=== PATIENT | female | born 1960 | race Caucasian/White ===

== ENCOUNTER 2017-07-25 09:40 | Inpatient (IN) | payer MEDICARE ==
[~2017-07-25] VITALS: Ht 149.9 cm; Wt 100.7 kg
[~2017-07-25 09:40] MED LIST: ASPIRIN325 PO; CARDIZEM CD240 MG PO; CLONAZEPAM 1 MG1 M1 PO; COREG25 MG PO; ELOCON TRANSDERM; FLAX SEED OIL1000 MG PO; FLEXERIL PO; FOLIC ACID1 MG PO; HUMALIN SUBQ; HUMALOG SUBQ; HYDRALAZINE 2525 MG PO; HYDROCODONE-AP1 EA11 PO; IMDUR 60 MG TAB60 M1 PO; LANTUS100 UNIT/M SUBQ; LASIX 40 MG TAB40 M2 PO; MONOPRIL20 MG PO; NITROGLYCERIN0.4 MG SUBLING; PENICILLIN V P500 MG PO; PREDNISONE 10 M10 MG PO; VIT D3 PO; WELCHOL 625 MG625 M1 PO; fish oil PO; nitroglycerin TRANSLING
[2017-07-25 10:05] VITALS: BP 198/96
[2017-07-25 10:10] LABS: HEMATOCRIT 44.5 % (37.0-47.0); HEMOGLOBIN 14.5 gm/dL (12.0-15.0); MCH 31.7 pg (26.0-34.0); MCHC 32.6 g/dL (28.0-37.0); MCV 97.2 fL (80.0-100.0); MPV 8.9 fl. (7.2-11.1); NUCLEATED RBCS 0 /100WBC; PLATELET COUNT* 232 thou/uL (150-400); RBC 4.58 mil/uL (4.20-5.00); RDW-CV 14.6 % (10.5-14.5); WBC 10.5 thou/uL (4.0-11.0)
[2017-07-25 10:19] LABS: ANION GAP 12 mmol/L (7-16); BUN 30 mg/dL (7-18); CALCIUM 8.8 mg/dL (8.5-10.1); CHLORIDE 100 mmol/L (98-107); CO2 23 mmol/L (21-32); CREATININE 1.6 mg/dL (0.6-1.3); GLUCOSE 321 mg/dL (70-99); POTASSIUM 3.8 mmol/L (3.5-5.1); SODIUM 135 mmol/L (136-145)
[2017-07-25 10:20] LABS: APTT 23.8 Seconds (25.0-31.3); INR 1.1; PROTIME 10.3 Seconds (9.20-11.50)
[2017-07-25 10:30] LABS: ALBUMIN 3.4 g/dL (3.4-5.0); ALKALINE PHOSPHATASE 126 U/L (46-116); LIPASE 78 U/L (73-393); MAGNESIUM 1.5 mg/dL (1.8-2.4); NT-PRO BRAIN NAT PEPTIDE 2370 pg/mL (<300); SGOT 20 U/L (15-37); SGPT 26 U/L (30-65); TOTAL BILIRUBIN 0.3 mg/dL (<0.1-1.0); TOTAL PROTEIN 7.5 g/dL (6.4-8.2); TROPONIN-I LEVEL <0.06 ng/mL (<0.06)
[2017-07-25 10:36] LABS: ABSOLUTE LYMPHOCYTES 1.3 thou/uL (0.8-5.3); ABSOLUTE MONOCYTES 1.2 thou/uL (0.0-1.2); ABSOLUTE NEUTROPHILS 8.1 thou/uL (1.6-8.1); PLATELET ESTIMATE ADEQUATE
[2017-07-25 10:45] LABS: INFLUENZA A ANTIGEN None Detected (None Detect); INFLUENZA B ANTIGEN None Detected (None Detect)
[2017-07-25 12:44] LABS: BE -8.1 mmol/L (-2 to +3); HCO3 16.6 mmol/L (22.0-26.0); PCO2 31.9 mmHg (35.0-45.0); PO2 66.5 mmHg (75.0-100.0); pH 7.333 (7.340-7.450)
[2017-07-25 16:10] VITALS: BP 131/62
[2017-07-25 16:45] VITALS: BP 128/74
[2017-07-25 20:13] VITALS: BP 145/69
[2017-07-26 04:08] LABS: ABSOLUTE LYMPHOCYTES 0.9 thou/uL (0.8-5.3); ABSOLUTE MONOCYTES 0.4 thou/uL (0.0-1.2); ABSOLUTE NEUTROPHILS 6.9 thou/uL (1.6-8.1); BASOPHILS 0.6 %; HEMATOCRIT 41.3 % (37.0-47.0); HEMOGLOBIN 13.7 gm/dL (12.0-15.0); LYMPHOCYTES 10.5 %; MCHC 33.1 g/dL (28.0-37.0); MCV 96.8 fL (80.0-100.0); MONOCYTES 4.7 %; MPV 9.3 fl. (7.2-11.1); NUCLEATED RBCS 0 /100WBC; PLATELET COUNT* 214 thou/uL (150-400); POLYS 84.2 %; RBC 4.27 mil/uL (4.20-5.00); RDW-CV 14.1 % (10.5-14.5); WBC 8.2 thou/uL (4.0-11.0)
[2017-07-26 04:21] LABS: CALCIUM 8.9 mg/dL (8.5-10.1); CREATININE 1.7 mg/dL (0.6-1.3); MAGNESIUM 1.9 mg/dL (1.8-2.4); POTASSIUM 3.6 mmol/L (3.5-5.1)
[2017-07-26 06:00] VITALS: BP 131/75
[2017-07-26 08:00] VITALS: BP 139/79
[2017-07-26 09:09] LABS: GLYCOHEMOGLOBIN (HGB A1C) 11.2 % (4.8-5.6)
--- NOTE | 2017-07-26 15:36 | EKG ---
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 ALMONTE : 1960 Requested By: Tiago Pugh Order Number: [id number] MD: Marcus Durant Measurements Intervals [place] Rate: 117 P: 59 [place]: 163 QRS: 18 QRSD: 112 T: 8 QT: 334 QTc: 466 Interpretive Statements Sinus tachycardia Left atrial enlargement Inferior infarct, old Delayed R-wave progression Compared to ECG 10/10/2015 08:37:45 Sinus rhythm no longer present Intraventricular conduction delay no longer present Myocardial infarct finding still present Electronically Signed On 07-26-2017 15:36:31 NETWORK SUPPORT by Marcus Durant [email or web address] <ELECTRONICALLY SIGNED> By: Marcus Durant MD, FACC 07/26/17 1536 1005 1005 Marcus Durant MD, FAC /EPI
[2017-07-26 16:00] VITALS: BP 140/79
[2017-07-26 20:00] VITALS: BP 123/55
[2017-07-27 00:08] VITALS: BP 119/63
[2017-07-27 05:25] LABS: ABSOLUTE LYMPHOCYTES 0.9 thou/uL (0.8-5.3); ABSOLUTE MONOCYTES 0.6 thou/uL (0.0-1.2); ABSOLUTE NEUTROPHILS 16.9 thou/uL (1.6-8.1); BASOPHILS 0.1 %; HEMATOCRIT 42.5 % (37.0-47.0); HEMOGLOBIN 13.7 gm/dL (12.0-15.0); LYMPHOCYTES 4.9 %; MCH 31.4 pg (26.0-34.0); MCHC 32.2 g/dL (28.0-37.0); MCV 97.5 fL (80.0-100.0); MONOCYTES 3.2 %; MPV 9.1 fl. (7.2-11.1); NUCLEATED RBCS 0 /100WBC; PLATELET COUNT* 233 thou/uL (150-400); POLYS 91.8 %; RBC 4.36 mil/uL (4.20-5.00); RDW-CV 14.8 % (10.5-14.5); WBC 18.4 thou/uL (4.0-11.0)
[2017-07-27 05:44] LABS: ALBUMIN 2.9 g/dL (3.4-5.0); CALCIUM 8.7 mg/dL (8.5-10.1); CREATININE 1.6 mg/dL (0.6-1.3); MAGNESIUM 2.1 mg/dL (1.8-2.4); POTASSIUM 3.7 mmol/L (3.5-5.1); TOTAL BILIRUBIN 0.1 mg/dL (<0.1-1.0); TOTAL PROTEIN 6.7 g/dL (6.4-8.2)
[2017-07-27 08:00] VITALS: BP 146/80
[2017-07-27 16:50] VITALS: BP 144/77
[2017-07-27 20:00] VITALS: BP 146/74
[2017-07-27 23:40] VITALS: BP 152/73
[2017-07-28 08:00] VITALS: BP 147/73
[2017-07-28] MEDS ORDERED: LEVAQUIN 750 M750 MG PO (11:13)
[2017-07-28] MEDS ORDERED: PREDNISONE 10 M10 MG PO (11:14)
[2017-07-28] MEDS ORDERED: COMBIVENT INH (14:28)
[2017-07-28 14:30] VITALS: BP 152/60
[2017-07-28 14:32] VITALS: BP 152/60
[2017-07-28 18:17] VITALS: BP 152/60
== END 2017-07-28 15:00 | disposition home or self-care (01) | DRG 177 ==
LOC: M.ERS 09:40 → M.TBA-ER 10:33 → M.ORTHSURG 10:33 → M.2W 16:23 → M.ORTHSURG 20:00
PROVIDERS: Family Medicine; ADMIT Internal Medicine
DX: J15.6 Pneumonia due to other Gram-negative bacteria (principal); J96.21 Acute and chronic respiratory failure with hypoxia; J44.1 Chronic obstructive pulmonary disease with (acute) exacerbation; J44.0 Chronic obstructive pulmonary disease with (acute) lower respiratory infection; N17.9 Acute kidney failure, unspecified; R65.10 Systemic inflammatory response syndrome (SIRS) of non-infectious origin without acute organ dysfunction; Z68.41 Body mass index [BMI] 40.0-44.9, adult; K21.9 Gastro-esophageal reflux disease without esophagitis; M19.90 Unspecified osteoarthritis, unspecified site; F32.9 Major depressive disorder, single episode, unspecified; I10 Essential (primary) hypertension; E78.5 Hyperlipidemia, unspecified; F17.210 Nicotine dependence, cigarettes, uncomplicated; E66.01 Morbid (severe) obesity due to excess calories; E11.65 Type 2 diabetes mellitus with hyperglycemia; I25.2 Old myocardial infarction; Z88.8 Allergy status to other drugs, medicaments and biological substances; Z91.013 Allergy to seafood; Z79.899 Other long term (current) drug therapy

== ENCOUNTER → 2017-08-18 | Outpatient (CLI) | payer MEDICARE ==
[~2017-08-18] MED LIST changes: +AUGMENTIN 875-1 EACH PO; +COMBIVENT INH; +DIFLUCAN100 MG PO; +GUAIFENESIN1200 MG PO; +HUMALOG100 UNIT/1 SUBQ; +LEVAQUIN 750 M750 MG PO; +NEBULIZER MISCELL; +TRULICITY0.75 MG/0. SUBQ; +TYLENOL325 MG PO
--- NOTE | 2017-08-31 08:34 | PAINCON ---
[address] [address] PAIN MANAGEMENT CONSULTATION Name: PARISH JARVISS Sandra Room: [facility] LAZARUS Ramos#: [id number] Admission: 08/18/17 Attend Phys: Moses Rice MD Discharge: Date of : 58 Report #: [id number] THIS REPORT FOR: //name// CC: Doreen Rice DATE OF SERVICE: 08/18/2017 FOLLOWUP COMPLAINT: "I was in the hospital around [place]. FOLLOWUP HISTORY: The patient is a 57-year-old female who has been seen in the pain clinic because of chronic pain. She suffers from lumbar radicular pain. Epidural steroid injections have been quite helpful in the past. She has pain in the anterior portion of her thigh, which causes pain, discomfort, numbness and weakness. Last time she came to the pain clinic, she was suffering an upper respiratory infection. We discussed the need to postpone an injection because of her illness. She states that she was seen in the hospital and admitted. The patient has a history of pulmonary problems. States that she has had a flu shot. She was told that she had had some pneumonia like symptom. She feels that things have improved at this juncture. She feels like she is getting back to normal. She has been in the process of decreasing her use of tobacco. She finds it is more problematic given that other family members continue to smoke. She is down to just a few cigarettes per day. She desires stopping the medications. She is somewhat concerned having seen that a number of people have been dying as a result of the flu this year. She finds that the hydrocodone taken p.r.n. are helpful. ALLERGIES: CRESTOR. CURRENT MEDICATIONS: Aspirin 325 mg daily, Coreg 25 mg b.i.d., clonazepam 1 mg t.i.d., Flexeril 10 mg t.i.d. p.r.n. muscle spasms, Lasix 40 mg 3 times a week, hydralazine 25 mg t.i.d., hydrocodone 7.5 mg 1 p.o. q.8 hours p.r.n. pain, Combivent 14.7 gram inhaler 2 puffs t.i.d.; nitroglycerin 0.4 mg sublingual, the patient has not taken this medication. PHYSICAL EXAMINATION: VITAL SIGNS: Blood pressure 156/88, heart rate 110, respiratory rate 18, room air saturation 93%. Height 4 feet 10 inches, weight 223 pounds, BMI is 46.6, temperature is 98.0. GENERAL: Well-developed, obese white female. ORIENTATION: Alert and oriented, affect appropriate. HEENT: Nontraumatic. Ear, eyes not problematic. Nose some congestion, [place] [address] PAIN MANAGEMENT CONSULTATION Name: WILLAIN JARVIS Room: [facility]#: [id number] Admission: 08/18/17 Attend Phys: Moses Rice MD Discharge: Date of : 58 Report #: [id number] NECK: No masses. The patient does cough, some soreness in the upper shoulder areas. HEART: Regular rate, some decreased breath sounds, given the patient's body habitus. ABDOMEN: Protuberant. LOWER EXTREMITIES: Decreased sensation to light touch in the L3-L4 distribution of the anterior thigh, note some cramping in the legs, complains of some perception of muscle weakness in the legs when going from a sitting to standing position, note some discomfort while walking, standing, sitting and engaging in activities. IMPRESSION: 1. Improved pulmonary status since we saw her last - COPD status. 2. History of lumbar radicular pain status post instrumentation with fusion of the L5-S1 area. The patient continues to have pain and discomfort in the L2-L3. 3. Bilateral knee pain. The patient with osteoarthritis and has had injections of her shoulder and we will consider knee injections in the past. 4. Spinal stenosis at L3-L4 and L4-L5. 5. Diabetes type 2 with peripheral neuropathy. 6. Chronic renal disease, states that creatinine clearance is about 33. 7. Coronary artery disease with history of congestive heart failure in the past, stable. 8. Chronic obstructive pulmonary disease, on 4 liters of oxygen at home. The patient states that she is trying to decrease her use of tobacco, but difficult secondary to other family members smoking. 9. Hypertension. 10. Morbid obesity with body mass index of 44. RECOMMENDATIONS: We discussed treatment options with the patient. She indicates that her pain in the low back area has continued. She is having pain in the L3-L4 distribution. Injections in the past have been quite beneficial. She has noted an improvement in her pulmonary status since we saw her last. She states that she is smoking only a few cigarettes per day that she has cut down markedly. Has some difficulty because of family members who continued to smoke in her presence. The patient states that she has undergone a flu shot. States that she has had improvement in her pulmonary status and does not feel like she has the flu at this juncture. She would like to proceed with an epidural steroid injection. She would also like to consider possibility of injection in her knees in the future. We discussed the possible complication of the procedure, which could include but are not limited to infection, increased muscle soreness, headache, bleeding, muscle soreness, increase nerve irritation with persistent weakness. She elects to proceed. PROCEDURE NOTE: The patient was placed in the prone position. Fluoroscopy was [facility] [address] [place] [address] PAIN MANAGEMENT CONSULTATION Name: WILLIAN JARVIS Room: [facility]#: [id number] Admission: 08/18/17 Attend Phys: Moses Rice MD Discharge: Date of : 58 Report #: [id number] used to identify the L3-L4 interspace. This area had been sterilely prepped with Betadine and infiltrated with 0.25% bupivacaine. Total of 80 mg Depo-Medrol, 40 mg triamcinolone and 2 mL of 0.25% bupivacaine was injected. The patient tolerated the procedure well. There were no complications. A total of 32 seconds fluoro time was used. The patient's pain decreased to 5/10 at the time of discharge. Her condition was judged to be improved. She will call us if she has any problems with the last injection. <ELECTRONICALLY SIGNED> By: Moses Rice MD 08/31/17 0834 1114 1722N. Иван Rice MD /[facility]
== END | disposition home or self-care (01) ==
LOC: M.PC 07-12 03:39
DX: M54.16 Radiculopathy, lumbar region (principal); Z68.42 Body mass index [BMI] 45.0-49.9, adult; Z79.899 Other long term (current) drug therapy; E11.42 Type 2 diabetes mellitus with diabetic polyneuropathy; E11.22 Type 2 diabetes mellitus with diabetic chronic kidney disease; I13.0 Hypertensive heart and chronic kidney disease with heart failure and stage 1 through stage 4 chronic kidney disease, or unspecified chronic kidney disease; N18.9 Chronic kidney disease, unspecified; I50.9 Heart failure, unspecified; E66.01 Morbid (severe) obesity due to excess calories; I25.10 Atherosclerotic heart disease of native coronary artery without angina pectoris

== ENCOUNTER → 2017-10-20 | Outpatient (CLI) | payer MEDICARE ==
--- NOTE | 2017-11-02 08:21 | PAINCON ---
[address] [address] PAIN MANAGEMENT CONSULTATION Name: WILLIAN JARVIS Room: [facility] LAZARUS Ramos#: [id number] Admission: 10/20/17 Attend Phys: Moses Rice MD Discharge: Date of : 58 Report #: [id number] THIS REPORT FOR: //name// CC: Doreen Rice DATE OF SERVICE: 10/20/2017 CHIEF COMPLAINT: Right shoulder pain and low back and leg pain. FOLLOWUP HISTORY: The patient is a 57-year-old female who has been followed in the pain clinic because of chronic pain. As you recall, she does have some significant pulmonary problems. She states that she has recently been treated for pneumonia. She was on some antibiotics. She feels that most of her pneumonia is better. She states that she is scheduled to have another chest x-ray to evaluate her condition in the near future. She has come to the pain clinic for treatment. We discussed the possibility that steroids could possibly worsen her outcome, if she is still suffering from pneumonia. She will follow up with her primary doctor and undergo an x-ray. If everything seems like it is okay, then she will return to the pain clinic for a lumbar epidural steroid injection. She also is having quite significant pain involving her left arm. She notes that she is having difficulty raising it above the horizon. Notes there is significant pain with extension, abduction and adduction as well as extension of it behind her back. She feels that she may have a rotator cuff tear. She would like to undergo an MRI for evaluation of this at this juncture. She states that she is in the process also trying to decrease the amount of tobacco that she is using. She would like to return to the pain clinic for evaluation after the MRI. ALLERGIES: CRESTOR. MEDICATIONS: Aspirin 325 mg daily, Coreg 25 mg b.i.d., clonazepam 1 mg t.i.d., Flexeril 10 mg t.i.d., Lasix 40 mg t.i.d. q. week, hydralazine 25 mg t.i.d., hydrocodone 7.5 mg 1 p.o. q.8 hours p.r.n. pain, Combivent 2 puffs t.i.d., and nitroglycerin 0.4 mg sublingual. The patient has not taken the sublingual nitroglycerin. Recent discontinuation of an antibiotic given by her primary physician, the name of which she could not recall. PAIN CLINIC ASSESSMENT: 1. History of osteoarthritis/arthritis. The patient is not being treated specifically for arthritis. The patient does have osteoarthritis involving her back and knees as well as right shoulder pain 3. Pain intensity. Rates her pain as 9/10 today. 4. Fall risk: The patient has not fallen in the last 3 months. 5. Blood thinner. The patient [place] [address] PAIN MANAGEMENT CONSULTATION Name: WILLIAN JARVIS [id number] Admission: 10/20/17 Attend Phys: Moses Rice MD Discharge: Date of : 58 Report #: [id number] 6. History of hypertension. The patient is not being treated for hypertension. 7. Opioid greater than 6 weeks. The patient is receiving opioid medication on a regular basis and only get some from the pain clinic. 8. Risk assessment tool. 9. Functional assessment tool. 10. Recreational drug use. The patient denies recreational drug use. 11. Tobacco: The patient does smoke. She states that she continues to try and decrease her level of smoking. 12. Alcohol use. The patient denies infrequent use of alcoholic beverages. PHYSICAL EXAMINATION: GENERAL: The patient is a well-developed, obese female. She has somewhat short stature. She appears her stated age. She is alert and oriented x 3. Affect appears appropriate, VITAL SIGNS: Weight 215 pounds, height 4 feet 1 inch, BMI is 45. Blood pressure 94/53, heart rate 95, respiratory rate 16, room air saturation is 92%, temperature 97.6. HEENT: Nontraumatic. Extraocular eye muscles intact. Ears: Hearing within normal limits. The patient does have some cough and clears her sore throat. NECK: No masses. Notes some increased pain and discomfort involving the right shoulder. HEART: Regular rate. Decreased breath sounds and difficult to appreciate secondary to the patient's body habitus. ABDOMEN: Protuberant. EXTREMITIES: Upper extremity, right, the patient complains of pain and discomfort in the right shoulder. Has decreased range of motion with shoulder extension, adduction, and abduction. Unable to raise her arm above midline. Notes some pain and soreness in the area of the right shoulder musculature and in the area of the scapula. Unable to hold her arm against resistance on the right side. Complains of some weakness and cramping in her legs. She goes from a sitting to a standing position with use of her hands. IMPRESSION: 1. History of pulmonary problems with pneumonia - patient has history of chronic obstructive pulmonary disease, recently treated with antibiotics. 2. History of lumbar radicular pain status post instrumentation with fusion of the L5-S1 area. The patient continues to have some pain in the L2-L3 area. 3. Bilateral knee pain. History of osteoarthritis, has had injections of her shoulder as well as knee problems. 4. Spinal stenosis L3-L4 and L4-L5. 5. Diabetes type 2 with peripheral neuropathy. 6. Chronic renal disease. She states that her clearance is about 33. 7. Coronary artery disease with history of congestive heart failure in the past, stable. 8. Chronic obstructive pulmonary disease, on 4 liters of oxygen at home. 9. Chronic tobacco use. The patient states she [place] [address] PAIN MANAGEMENT CONSULTATION Name: WILLIAN JARVIS Room: [facility]#: [id number] Admission: 10/20/17 Attend Phys: Moses Rice MD Discharge: Date of : 58 Report #: [id number] of tobacco, but has family members who continued to smoke. 7. Hypertension. 8. Morbid obesity with a body mass index of 44. RECOMMENDATIONS: We discussed treatment options with the patient. At this juncture, she still has not been cleared by her primary doctor in regards to her pneumonia. I think it would be reasonable to make sure that she is optimized before proceeding with an epidural steroid injection. We also discussed the need to decrease/terminate use of tobacco. The patient is having pain and discomfort involving her right shoulder. She feels like she might have torn a rotator cuff in that area. We will get an MRI and note it for pathology. The patient will follow up in the near future. We would like to thank you for letting us participate in her care. We hope she continues to improve. <ELECTRONICALLY SIGNED> By: Moses Rice MD 11/02/17 0821 1213 2048N. Иван Rice MD /[facility]
== END ==
LOC: M.PC 09-06 05:20
DX: M54.16 Radiculopathy, lumbar region (principal)

== ENCOUNTER 2017-11-13 22:34 | Inpatient (IN) | payer MEDICARE ==
[~2017-11-13] VITALS: Ht 152.4 cm; Wt 91.2 kg
[~2017-11-13 22:34] MED LIST changes: -AUGMENTIN 875-1 EACH PO; -DIFLUCAN100 MG PO; -GUAIFENESIN1200 MG PO; -HUMALOG100 UNIT/1 SUBQ; -NEBULIZER MISCELL; -TRULICITY0.75 MG/0. SUBQ; -TYLENOL325 MG PO
[2017-11-13 22:35] VITALS: BP 163/65
[2017-11-13 23:16] LABS: BE -8.8 mmol/L (-2 to +3); HCO3 16.5 mmol/L (22.0-26.0); PCO2 34.2 mmHg (35.0-45.0); PO2 80.5 mmHg (75.0-100.0); pH 7.302 (7.340-7.450)
[2017-11-13 23:20] LABS: ABSOLUTE BASOPHILS 0.1 thou/uL (0.0-0.2); ABSOLUTE EOSINOPHILS 0.1 thou/uL (0.0-0.7); ABSOLUTE LYMPHOCYTES 1.6 thou/uL (0.8-5.3); ABSOLUTE MONOCYTES 0.4 thou/uL (0.0-1.2); ABSOLUTE NEUTROPHILS 11.4 thou/uL (1.6-8.1); BASOPHILS 0.5 %; EOSINOPHILS 0.4 %; HEMATOCRIT 49.4 % (37.0-47.0); HEMOGLOBIN 15.7 gm/dL (12.0-15.0); LYMPHOCYTES 12.1 %; MCH 27.6 pg (26.0-34.0); MCHC 31.7 g/dL (28.0-37.0); NUCLEATED RBCS 0 /100WBC; PLATELET COUNT* 249 thou/uL (150-400); RBC 5.68 mil/uL (4.20-5.00); RDW-CV 14.2 % (10.5-14.5); WBC 13.6 thou/uL (4.0-11.0)
[2017-11-13 23:30] LABS: ANION GAP 14 mmol/L (7-16); BUN 35 mg/dL (7-18); CALCIUM 9.4 mg/dL (8.5-10.1); CHLORIDE 93 mmol/L (98-107); CO2 20 mmol/L (21-32); CREATININE 2.3 mg/dL (0.6-1.3); POTASSIUM 3.2 mmol/L (3.5-5.1); SODIUM 127 mmol/L (136-145)
[2017-11-13 23:31] LABS: APTT 26.1 Seconds (25.0-31.3); PROTIME 10.2 Seconds (9.20-11.50)
[2017-11-13 23:36] LABS: URINE BILIRUBIN NEGATIVE (Negative); URINE BLOOD 2+ (Negative); URINE CLARITY SL CLOUDY; URINE COLOR STRAW; URINE GLUCOSE-RANDOM 3+ (Negative); URINE KETONES 1+ (Negative); URINE LEUKOCYTES-REFLEX TRACE (Negative); URINE NITRITE-REFLEX NEGATIVE (Negative); URINE PROTEIN 2+ (Negative); URINE SPECIFIC GRAVITY <= 1.005 (1.005-1.030); URINE UROBILINOGEN 0.2 E.U./dl (0.2-1.0)
[2017-11-13 23:37] LABS: GLUCOSE 962 mg/dL (70-99)
[2017-11-13 23:40] LABS: ALCOHOL < 10 mg/dL (<10); SALICYLATE 3.3 mg/dL (2.8-20.0)
[2017-11-13 23:41] LABS: ACETAMINOPHEN < 2 ug/mL (10-30)
[2017-11-13 23:42] LABS: AMP/METHAMP Negative (Negative); BARBITURATES Negative (Negative); BENZODIAZEPINES Negative (Negative); COCAINE Negative (Negative); METHADONE Negative (Negative); OPIATES Negative (Negative); PCP Negative (Negative); THC Negative (Negative)
[2017-11-13 23:46] LABS: ALBUMIN 3.1 g/dL (3.4-5.0); ALKALINE PHOSPHATASE 256 U/L (46-116); CK-MB MASS 1.9 ng/mL (<0.5-3.6); NT-PRO BRAIN NAT PEPTIDE 2038 pg/mL (<300); SGOT 14 U/L (15-37); SGPT 21 U/L (30-65); TOTAL BILIRUBIN 0.4 mg/dL (<0.1-1.0); TOTAL PROTEIN 7.3 g/dL (6.4-8.2); TROPONIN-I LEVEL <0.06 ng/mL (<0.06)
[2017-11-14] VITALS (16 sets, daily range): BP systolic 99–155; BP diastolic 38–106
[2017-11-14 00:05] LABS: CASTS None Seen /LPF (None Seen); SQUAMOUS 4-10 Moderate /LPF (0-3)
[2017-11-14 00:06] LABS: CRYSTALS None Seen /LPF (None Seen); URINE RBC 3-10 Few /HPF (0-2); URINE WBC-REFLEX >25 Many /HPF (0-5)
[2017-11-14 00:07] LABS: YEAST-REFLEX Present (None Seen)
[2017-11-14] MEDS ORDERED: LANTUS100 UNIT/M SUBQ (00:14)
[2017-11-14 04:09] LABS: MAGNESIUM 1.8 mg/dL (1.8-2.4); PHOSPHORUS* 3.2 mg/dL (2.5-4.9)
[2017-11-14 04:20] LABS: CALCIUM 9.3 mg/dL (8.5-10.1); PHOSPHORUS* 3.3 mg/dL (2.5-4.9); POTASSIUM 3.1 mmol/L (3.5-5.1)
[2017-11-14 08:17] LABS: ALBUMIN 2.7 g/dL (3.4-5.0); CALCIUM 8.8 mg/dL (8.5-10.1); CREATININE 1.9 mg/dL (0.6-1.3); PHOSPHORUS* 2.3 mg/dL (2.5-4.9); POTASSIUM 3.3 mmol/L (3.5-5.1)
[2017-11-14 08:30] LABS: CHOLESTEROL 285 mg/dL (<200); HDL CHOLESTEROL 40 mg/dL (>40); LDL CHOLESTEROL 195 mg/dL (<100); TC:HDL 7.1 Ratio (Not establshd); TRIGLYCERIDE 251 mg/dL (<150); VLDL 50 mg/dL (<40)
[2017-11-14 08:31] LABS: SERUM ASSESSMENT Clear
--- NOTE | 2017-11-14 17:53 | EKG ---
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: BD : 1960 Requested By: Lee Anaya Order Number: [id number] MD: Marcus Durant Measurements Intervals [place] Rate: 111 P: 0 [place]: 125 QRS: -22 QRSD: 121 T: -50 QT: 357 QTc: 485 Interpretive Statements Sinus tachycardia Consider biatrial enlargement Nonspecific intraventricular conduction delay Inferior infarct, recent Probable anterior infarct, old Compared to ECG 07/25/2017 10:05:41 Intraventricular conduction delay now present Myocardial infarct finding still present Electronically Signed On 11-14-2017 17:53:22 CDT by Marcus Durant [email or web address] <ELECTRONICALLY SIGNED> By: Marcus Durant MD, FACC 11/14/17 1753 2314 2314 Marcus Durant MD, FAC /EPI
[2017-11-14 19:37] LABS: MAGNESIUM 1.7 mg/dL (1.8-2.4); POTASSIUM 3.1 mmol/L (3.5-5.1)
[2017-11-15] VITALS (9 sets, daily range): BP systolic 82–141; BP diastolic 33–93
[2017-11-15 04:06] LABS: GLYCOHEMOGLOBIN (HGB A1C) 17.4 % (4.8-5.6)
[2017-11-15 04:42] LABS: ABSOLUTE BASOPHILS 0.1 thou/uL (0.0-0.2); ABSOLUTE EOSINOPHILS 0.3 thou/uL (0.0-0.7); ABSOLUTE MONOCYTES 1.1 thou/uL (0.0-1.2); ABSOLUTE NEUTROPHILS 8.8 thou/uL (1.6-8.1); BASOPHILS 0.6 %; EOSINOPHILS 2.4 %; HEMATOCRIT 42.4 % (37.0-47.0); LYMPHOCYTES 27.9 %; MCH 27.3 pg (26.0-34.0); MCHC 32.9 g/dL (28.0-37.0); MCV 82.9 fL (80.0-100.0); MONOCYTES 7.8 %; MPV 9.7 fl. (7.2-11.1); NUCLEATED RBCS 0 /100WBC; PLATELET COUNT* 276 thou/uL (150-400); POLYS 61.3 %; RBC 5.11 mil/uL (4.20-5.00); RDW-CV 13.7 % (10.5-14.5); WBC 14.3 thou/uL (4.0-11.0)
[2017-11-15 04:49] LABS: ALBUMIN 2.3 g/dL (3.4-5.0); ALKALINE PHOSPHATASE 136 U/L (46-116); ANION GAP 11 mmol/L (7-16); BUN 30 mg/dL (7-18); CALCIUM 8.8 mg/dL (8.5-10.1); CHLORIDE 110 mmol/L (98-107); CO2 21 mmol/L (21-32); CREATININE 1.9 mg/dL (0.6-1.3); GLUCOSE 74 mg/dL (70-99); MAGNESIUM 1.8 mg/dL (1.8-2.4); PHOSPHORUS* 3.1 mg/dL (2.5-4.9); SGOT 19 U/L (15-37); SGPT 16 U/L (30-65); SODIUM 142 mmol/L (136-145); TOTAL BILIRUBIN 0.3 mg/dL (<0.1-1.0); TOTAL PROTEIN 5.8 g/dL (6.4-8.2)
[2017-11-15 05:01] LABS: POTASSIUM 2.5 mmol/L (3.5-5.1)
[2017-11-16 07:35] VITALS: BP 119/68
[2017-11-16 14:25] VITALS: BP 119/68
[2017-11-16 14:56] VITALS: BP 123/64
[2017-11-16 22:53] VITALS: BP 168/55
[2017-11-17 08:30] VITALS: BP 123/61
[2017-11-17] MEDS ORDERED: HUMALOG100 UNIT/1 SUBQ (14:20)
[2017-11-17] MEDS ORDERED: DIFLUCAN100 MG PO (14:21)
[2017-11-17 15:00] VITALS: BP 119/68
== END 2017-11-17 15:15 | disposition home health service (06) | DRG 682 ==
LOC: M.ERS 22:34 → M.TBA-ER 23:59 → M.ICU 23:59 → M.3W 11-15 10:37
PROVIDERS: Emergency Medicine Emergency Medical Services; Internal Medicine; ADMIT Internal Medicine
DX: N17.0 Acute kidney failure with tubular necrosis (principal); E11.10 Type 2 diabetes mellitus with ketoacidosis without coma; G92 Toxic encephalopathy; R65.10 Systemic inflammatory response syndrome (SIRS) of non-infectious origin without acute organ dysfunction; N30.91 Cystitis, unspecified with hematuria; K21.9 Gastro-esophageal reflux disease without esophagitis; M19.90 Unspecified osteoarthritis, unspecified site; F32.9 Major depressive disorder, single episode, unspecified; E11.22 Type 2 diabetes mellitus with diabetic chronic kidney disease; I12.9 Hypertensive chronic kidney disease with stage 1 through stage 4 chronic kidney disease, or unspecified chronic kidney disease; E78.5 Hyperlipidemia, unspecified; F17.210 Nicotine dependence, cigarettes, uncomplicated; N18.3 Chronic kidney disease, stage 3 (moderate); Z79.4 Long term (current) use of insulin; I25.2 Old myocardial infarction; Z88.8 Allergy status to other drugs, medicaments and biological substances; Z86.73 Personal history of transient ischemic attack (TIA), and cerebral infarction without residual deficits

== ENCOUNTER → 2017-11-29 | Outpatient (CLI) | payer MEDICARE ==
[~2017-11-29] MED LIST changes: +AUGMENTIN 875-1 EACH PO; +DIFLUCAN100 MG PO; +GUAIFENESIN1200 MG PO; +HUMALOG100 UNIT/1 SUBQ; +NEBULIZER MISCELL; +TRULICITY0.75 MG/0. SUBQ; +TYLENOL325 MG PO
--- NOTE | 2018-01-11 13:42 | PAINCON ---
[address] [address] PAIN MANAGEMENT CONSULTATION Name: MATHEUSWILLIAN Sandra Room: [facility] LAZARUS Ramos#: [id number] Admission: 11/29/17 Attend Phys: Moses Rice MD Discharge: Date of : 58 Report #: [id number] THIS REPORT FOR: //name// CC: Doreen Rice DATE OF SERVICE: 11/29/2017 FOLLOWUP COMPLAINT: Pain in the low back area. FOLLOWUP HISTORY: The patient is a 57-year-old female who has been followed in the Pain Clinic because of lumbar radiculopathy. As you recall, she has had some pain, she has had some problems with her low back. She has undergone rods and pedicle screws placement in her low back. She returns today indicating that her pain has recurred. She is having pain and discomfort, which improve significantly after the last epidural steroid injection. It involves the low back and radiates down into the L3-L4 portion of her legs. She noted after the last injection that she had had some problems, which were a result of elevated blood sugars. She states that she was hospitalized. Her blood sugar was found to be in the 900s. She stayed in the hospital until her blood sugars were worked out and normalized. At this juncture, she states that her blood sugar was 257 this morning. We discussed the problems with elevated blood sugars associated with steroids. She rates her pain as a 10/10. She states that she was going to monitor blood sugar and not let it get above this level. She states that this level is somewhat baseline for her. She feels that the pain is still quite problematic. I would like to proceed with an epidural steroid injection and has come to the Pain Clinic for that treatment course. Notes that because of the changes in the weather, which are cold and damp that her pain has waxed and waned. Both her lower back and down into her legs. She also has some pain and discomfort up in her shoulders. As you recall, she has had this pain and discomfort for a number of years. Notes that factors that exacerbate her pain are activity, walking, sitting, standing, climbing stairs, sitting for prolonged periods of time, lifting and bending. ALLERGIES: CRESTOR. MEDICATIONS: Aspirin 325 mg daily, Coreg 25 mg b.i.d., clonazepam 1 mg t.i.d., Flexeril 10 mg t.i.d. p.r.n. muscle spasms, Lasix 40 mg 3 times weekly, hydralazine 25 mg t.i.d., hydrocodone 7.5 mg 1 p.o. q.8 hours p.r.n., Combivent 14.7 gram inhaler 2 puffs t.i.d., nitroglycerin 0.4 mg sublingual, taken as directed. PAIN CLINIC ASSESSMENT: 1. History of osteoarthritis. The patient has not been treated for osteoarthritis specifically. The patient does [place] [address] PAIN MANAGEMENT CONSULTATION Name: WILLIAN JARVIS Room: [facility] LAZARUS Ramos#: [id number] Admission: 11/29/17 Attend Phys: Moses Rice MD Discharge: Date of : 58 Report #: [id number] involving her back, knees, and right shoulder. 2. VITAL SIGNS: Blood pressure 106/59, heart rate 98, respiratory rate 18, room air saturation 97%, temperature 98.1, height 4 feet 10 inches, weight 211 pounds, BMI is 44. 3. Pain intensity risk: 05/10. 4. Fall risk: The patient has not fallen in the last 3 months. 5. Blood thinner. The patient is not on a blood thinner medication. 6. History of hypertension. The patient is not being treated for hypertension. 7. Opioid greater than 6 weeks. The patient is receiving the opioid medication and received them from one source of the Pain Clinic. 8. Risk assessment tool. 9. Functional assessment tool. 10. Recreational drug use. The patient denies recreational drug use. 12. Tobacco: The patient denies use of tobacco. She states that she continues to try to decrease her smoking. 13. Alcohol: The patient denies use of frequent alcoholic beverages. PHYSICAL EXAMINATION: GENERAL: The patient is a well-developed white female. She is obese. She is somewhat short in stature. She appears her stated age. She is alert and oriented x 3. Affect is appropriate. Speech is baseline for this patient. VITAL SIGNS: As stated above. HEENT: Normocephalic, atraumatic. Extraocular eye muscles intact. Hearing is within normal limits. Sclerae nonicteric. The patient does have some need to cough. Does cough and clear her throat during our interview. NECK: No masses. The patient does have some pain and discomfort involving the right shoulder. HEART: Regular rate. Decreased heart tones secondary to the patient's body habitus. LUNGS: Decreased breath sounds secondary to the patient's body habitus. ABDOMEN: Protuberant. EXTREMITIES: Upper right extremity, the patient complains of pain and discomfort involving the right shoulder. Decreased range of motion in the right shoulder. Decreased extension, adduction, and abduction. Unable to raise her arm above midline. MUSCULOSKELETAL: Without significant kyphosis, scoliosis or lordosis. The patient has pain and discomfort which is radiating down into the lower portion of her back with some pain in the L3-L4 distribution, which radiates into the anterior portion of her leg. This has improved in the past with epidural steroid injections. IMPRESSION: 1. History of lumbar radiculopathy, improves with epidural steroid injection. 2. History of diabetes. Had blood sugar of 900, was hospitalized for this. The patient has stated that she is monitoring her blood sugar. She feels that it is reasonably stable for her at this juncture. Rates her pain as a 05/10 [place] [address] PAIN MANAGEMENT CONSULTATION Name: WILLIAN JARVIS Room: [facility] Rachel#: [id number] Admission: 11/29/17 Attend Phys: Moses Rice MD Discharge: Date of : 58 Report #: [id number] would like to proceed with an epidural steroid injection. 3. Bilateral knee pain. History of osteoarthritis and has had injection of her shoulder as well as her knee as knee problems. 4. Spinal stenosis L3-L4 and L4-L5. 5. Diabetes type 2 with peripheral neuropathy. 6. Chronic renal disease with clearance of about 33. 7. Coronary artery disease with history of congestive heart failure. 8. Chronic obstructive pulmonary disease, 4 liters of oxygen at home. 9. Tobacco use. The patient states she is trying to decrease use of tobacco. 10. Hypertension. 11. Morbid obesity with body mass index of 44. RECOMMENDATIONS: We discussed treatment options with the patient. Risks and benefits of an epidural steroid injection were again reviewed. The patient did have an elevated blood sugar level. She states that she would continue to monitor her blood sugar level and if it is normal, then she would make amendment with her medications. If she notes that it continued to be elevated, she will contact her primary physician in that regard. PROCEDURE NOTE: The patient elects to proceed. Risks and benefits of the procedure were again reviewed. They could include but are not limited to infection, increased muscle soreness, headache, paresis, worsening of pain, improvement in pain. The patient was taken to the procedure area. She was assisted in getting on the procedure table. Her back was sterilely prepped with a Betadine solution. Then, 0.25% bupivacaine was infiltrated at the L3-L4 interspace on the left paraspinous area. A 17-gauge Tuohy with loss of resistance technique was used to gain access to the epidural space. Visualization was used with fluoroscopy using an anterior-posterior as well as lateral viewing. After the appropriate placement, a total of 80 mg Depo-Medrol was placed. The patient tolerated the procedure well. There were no complications. She remained in the Pain Clinic for an appropriate amount of time. A Band-Aid was placed. There was no bleeding. She will return to the Pain Clinic as needed. We would like to thank you for letting us participate in her care. We hope she continues to improve. <ELECTRONICALLY SIGNED> By: Moses Rice MD 01/11/18 1342 1329 0410N. Иван Rice MD /nt
== END | disposition home or self-care (01) ==
LOC: M.PC 03:31
DX: M54.16 Radiculopathy, lumbar region (principal); M48.061 Spinal stenosis, lumbar region without neurogenic claudication; I13.0 Hypertensive heart and chronic kidney disease with heart failure and stage 1 through stage 4 chronic kidney disease, or unspecified chronic kidney disease; N18.9 Chronic kidney disease, unspecified; I50.9 Heart failure, unspecified; I25.10 Atherosclerotic heart disease of native coronary artery without angina pectoris; E11.22 Type 2 diabetes mellitus with diabetic chronic kidney disease; E11.40 Type 2 diabetes mellitus with diabetic neuropathy, unspecified; J44.9 Chronic obstructive pulmonary disease, unspecified; E66.01 Morbid (severe) obesity due to excess calories; Z68.41 Body mass index [BMI] 40.0-44.9, adult; Z98.890 Other specified postprocedural states; Z79.899 Other long term (current) drug therapy; Z88.8 Allergy status to other drugs, medicaments and biological substances; Z79.891 Long term (current) use of opiate analgesic; Z79.82 Long term (current) use of aspirin

== ENCOUNTER 2018-02-09 06:43 | Inpatient (IN) | payer MEDICARE ==
[~2018-02-09] VITALS: Ht 149.9 cm; Wt 112.0 kg
[~2018-02-09 06:43] MED LIST changes: -AUGMENTIN 875-1 EACH PO; -GUAIFENESIN1200 MG PO; -NEBULIZER MISCELL; -TRULICITY0.75 MG/0. SUBQ; -TYLENOL325 MG PO
[2018-02-09 06:51] VITALS: BP 136/71
[2018-02-09] MEDS ORDERED: NEBULIZER MISCELL (06:57)
[2018-02-09 07:30] LABS: ABSOLUTE EOSINOPHILS 0.4 thou/uL (0.0-0.7); ABSOLUTE LYMPHOCYTES 2.9 thou/uL (0.8-5.3); ABSOLUTE MONOCYTES 1.1 thou/uL (0.0-1.2); ABSOLUTE NEUTROPHILS 8.5 thou/uL (1.6-8.1); BASOPHILS 0.2 %; EOSINOPHILS 3.4 %; HEMATOCRIT 38.3 % (37.0-47.0); HEMOGLOBIN 12.3 gm/dL (12.0-15.0); LYMPHOCYTES 22.7 %; MCH 26.8 pg (26.0-34.0); MCHC 32.1 g/dL (28.0-37.0); MCV 83.5 fL (80.0-100.0); MONOCYTES 8.2 %; MPV 8.7 fl. (7.2-11.1); NUCLEATED RBCS 0 /100WBC; PLATELET COUNT* 294 thou/uL (150-400); POLYS 65.5 %; RBC 4.58 mil/uL (4.20-5.00); RDW-CV 14.2 % (10.5-14.5)
[2018-02-09 07:42] LABS: ANION GAP 3 mmol/L (7-16); BUN 34 mg/dL (7-18); CALCIUM 9.2 mg/dL (8.5-10.1); CHLORIDE 105 mmol/L (98-107); CO2 32 mmol/L (21-32); CREATININE 1.7 mg/dL (0.6-1.3); GLUCOSE 168 mg/dL (70-99); POTASSIUM 3.2 mmol/L (3.5-5.1); SODIUM 140 mmol/L (136-145)
[2018-02-09 07:51] LABS: INR 1.1; PROTIME 10.6 Seconds (9.20-11.50)
[2018-02-09 07:53] LABS: ALBUMIN 2.9 g/dL (3.4-5.0); ALKALINE PHOSPHATASE 124 U/L (46-116); LIPASE 79 U/L (73-393); NT-PRO BRAIN NAT PEPTIDE 2695 pg/mL (<300); SGOT 17 U/L (15-37); SGPT 36 U/L (30-65); TOTAL BILIRUBIN 0.2 mg/dL (<0.1-1.0); TOTAL PROTEIN 6.8 g/dL (6.4-8.2); TROPONIN-I LEVEL <0.06 ng/mL (<0.06)
[2018-02-09 08:32] VITALS: BP 149/92
[2018-02-09 09:00] VITALS: BP 154/83
--- NOTE | 2018-02-09 09:00 | NUR ---
RECIEVED REPORT. ASSUMED CARE OF PT AT 0900. PT TRANSERRED TO ROOM 211 VIA CART. VSS. CARDIAC MONTIORING IN PLACE SR. PT ON 6L PER NC WITH O2 SAT 88-89% PT TO HAVE BIPAP PER ORDERS. RT NOTIFED. PT SOA WITH EXERTION. PT SITTING IN CHAIR. PT DNEIES ANY COMPLAINTS OF PAIN OR DISCOMFORT AT THIS TIME. PT HAD RESENT CATARACT SURGERY TO LEFT EYE. PT'S SPOUSE AT BEDSIDE. IVF INFUSING. PT ORIENETED TO ROOM AND CALL LIGHT. PT SCREENED POSITIVE FOR SEPSIS IN ED. CALL LIGHT IS WITHIN REACH. WILL CONTINUE TO MONTIOR FOR DURATION OF SHFIT.
[2018-02-09 11:39] VITALS: BP 160/86
--- NOTE | 2018-02-09 13:08 | EKG ---
[place] [address] ELECTROCARDIOGRAM REPORT Name: MATHEUSWILLIAN Flores Room: [address] IN [facility]#: [id number] Admission: 02/09/18 Attend Phys: Kamlesh West Discharge: Date of : 58 Report #: [id number] THIS REPORT FOR: //name// [facility] ED Test Date: 2018-02-09 Test Time: 06:59:39 Pat Name: WILLIAN JARVIS Department: Room: Gender: Hand Ii Tube Bender: Staci ALMONTE : 1960 Requested By: Marissa Childers Order Number: [id number] MD: Jacoby Longoria Measurements Intervals [place] Rate: 89 P: 69 DC: 204 QRS: 51 QRSD: 113 T: 45 QT: 399 QTc: 486 Interpretive Statements Sinus rhythm Borderline prolonged DC interval Left atrial enlargement Possible inferior infarct, old Compared to ECG 11/13/2017 23:14:51 Sinus tachycardia no longer present Intraventricular conduction delay no longer present Myocardial infarct finding still present Electronically Signed On 02-09-2018 13:07:48 CDT by Jacoby Longoria [email or web address] <ELECTRONICALLY SIGNED> By: Jacoby Longoria MD, [facility] 02/09/18 1307 [id number] [id number] Jacoby Longoria MD, [facility] /EPI
[2018-02-09 13:55] LABS: URINE BILIRUBIN NEGATIVE (Negative); URINE BLOOD TRACE (Negative); URINE CLARITY CLEAR; URINE COLOR YELLOW; URINE GLUCOSE-RANDOM 3+ (Negative); URINE KETONES TRACE (Negative); URINE LEUKOCYTES-REFLEX NEGATIVE (Negative); URINE NITRITE-REFLEX NEGATIVE (Negative); URINE PROTEIN 3+ (Negative); URINE SPECIFIC GRAVITY >= 1.030 (1.005-1.030); URINE UROBILINOGEN 0.2 E.U./dl (0.2-1.0)
[2018-02-09 14:12] LABS: BACTERIA-REFLEX None Seen /HPF (None Seen); CASTS None Seen /LPF (None Seen); CRYSTALS None Seen /LPF (None Seen); MUCUS None Seen strn/LPF (None Seen); SQUAMOUS 4-10 Moderate /LPF (0-3); URINE RBC 0-2 Rare /HPF (0-2); URINE WBC-REFLEX 0-5 Rare /HPF (0-5)
--- NOTE | 2018-02-09 16:24 | 2DMMODE ---
[address] [address] 2 D/M-MODE ECHOCARDIOGRAM Name: WILLIAN JARVIS Room: [address] IN [facility]#: [id number] Admission: 02/09/18 Attend Phys: James Carias Discharge: Date of : 58 Date of Service: 02/09/18 1624 Report #: [id number] THIS REPORT FOR: //name// APPROVED REPORT Study performed: 02/09/2018 15:00:22 EXAM: Limited 2D, Doppler, and color-flow Echocardiogram Room #: [facility] Status: routine BSA: 2.14 HR: 108 bpm BP: 160/86 mmHg Rhythm: NSR Other Information Technically limited study due to body habitus, inability to position patient, patient's inability to lay down due to shortness of breath. Indications Congestive Heart Failure Dyspnea Tricuspid Valve TR Peak Gr.: 39.77 mmHg Left Ventricle The left ventricle is normal size. There is distal septal and anteroapical hypokinesis There is normal left ventricular wall thickness. Left ventricular systolic function is mildly decreased. LVEF is 50%. This study is not technically sufficient to allow evaluation of the LV diastolic function. Right Ventricle The right ventricle is normal size. The right ventricular systolic function is normal. Atria Left atrium is mildly dilated. The right atrium size is normal. Aortic Valve Mild aortic valve sclerosis. No aortic regurgitation is present. No hemodynamically significant [place] [id number] 2 D/M-MODE ECHOCARDIOGRAM Name: JOHNNANDINIGERRYWILLIAN Sandra Room: [address] IN ..#: [id number] Admission: 02/09/18 Attend Phys: James Carias Discharge: Date of : 58 Date of Service: 02/09/18 1624 Report #: [id number] Mitral Valve Moderate mitral annular calcification. Mild to moderate mitral regurgitation. No evidence of mitral valve stenosis. Tricuspid Valve The tricuspid valve is normal in structure. Pulmonic Valve The pulmonary valve is normal in structure. Great Vessels The aortic root is normal in size. IVC is normal in size and collapses >50% with inspiration. Pericardium There is no pericardial effusion. There is no pleural effusion. <Conclusion> The left ventricle is normal size. There is normal left ventricular wall thickness. Left ventricular systolic function is mildly decreased. LVEF is 50%. The right ventricle is normal size. Left atrium is mildly dilated. Mild aortic valve sclerosis. No aortic regurgitation is present. No hemodynamically significant valvular aortic stenosis. Moderate mitral annular calcification. Mild to moderate mitral regurgitation. The tricuspid valve is normal in structure. IVC is normal in size and collapses >50% with inspiration. There is no pericardial effusion. There is distal septal and anteroapical hypokinesis <ELECTRONICALLY SIGNED> By: Jacoby Longoria MD, [facility] 02/09/18 1624 [id number] Jacoby Longoria MD, [facility] /INF
--- NOTE | 2018-02-09 16:38 | NUR ---
PT WAS OFF OF BIPAP AT 1300.
[2018-02-09 17:01] VITALS: BP 153/80
--- NOTE | 2018-02-09 17:47 | NUR ---
VSS. CARDIAC MONTIORING IN PLACE WITH NO CHANES THIS SHIFT. PT PARTIALLY PROGRESSING TOWARDS GOALS. PT REMAINS ON 6L PER NC. BIPAP PRN AT HS. PT REMIANS SOA. REASSURANCE AND ANXIETY MEDICATIONS GIVEN WITH SOME RELIEF. PT IS UP WITH STAND BY ASSISTANCE TO BSC. IVF INFUSING. PT HAS VOICED NO COMPLAITNS OF PAIN OR DISCOMFORT THIS SHIFT. PT INFORMED OF PLAN OF CARE. CALL LIGHT IS WITHIN REACH. WILL CONTINUE TO MONTIOR FOR DURAITON OF SHFIT.
[2018-02-09 20:00] VITALS: BP 139/63
[2018-02-10] VITALS: BP 168/88
--- NOTE | 2018-02-10 00:38 | NUR ---
DOCTOR NOTIFIED OF ELEVATED BLOOD SUGAR, SEE ORDERS.
--- NOTE | 2018-02-10 01:49 | NUR ---
PATIENT RESTED IN BED, NO ACUTE CHANGES. PATIENT DID NOT SHOW SIGNS OF DISTRESS. FALL PRECAUTIONS IN PLACE, BED ALARM ON, CALL LIGHT WITHIN REACH, HOURLY ROUNDING OBSERVED. PATIENT TOLERATED BIPAP WELL.
[2018-02-10 04:00] VITALS: BP 155/86
[2018-02-10 04:53] LABS: HEMATOCRIT 38.8 % (37.0-47.0); HEMOGLOBIN 12.6 gm/dL (12.0-15.0); MCH 26.8 pg (26.0-34.0); MCHC 32.4 g/dL (28.0-37.0); MCV 82.8 fL (80.0-100.0); MPV 8.9 fl. (7.2-11.1); NUCLEATED RBCS 0 /100WBC; PLATELET COUNT* 264 thou/uL (150-400); RBC 4.68 mil/uL (4.20-5.00); RDW-CV 14.2 % (10.5-14.5); WBC 13.3 thou/uL (4.0-11.0)
[2018-02-10 05:23] LABS: CREATININE 1.5 mg/dL (0.6-1.3); POTASSIUM 3.4 mmol/L (3.5-5.1)
--- NOTE | 2018-02-10 05:23 | NUR ---
PATIENT IS NOT SHOWING SIGNS OF DISTRESS.
[2018-02-10 07:20] VITALS: BP 123/62
[2018-02-10 07:39] LABS: ABSOLUTE LYMPHOCYTES 0.8 thou/uL (0.8-5.3); ABSOLUTE MONOCYTES 0.4 thou/uL (0.0-1.2); ABSOLUTE NEUTROPHILS 12.1 thou/uL (1.6-8.1)
[2018-02-10 07:47] LABS: PLATELET ESTIMATE ADEQUATE
--- NOTE | 2018-02-10 10:49 | EKG ---
[place] [address] ELECTROCARDIOGRAM REPORT Name: JOHNNANDINIGERRYWILLIAN Sandra Room: [address] ADM IN [facility].#: [id number] Admission: 02/09/18 Attend Phys: Kamlesh West Discharge: Date of : 58 Report #: [id number] THIS REPORT FOR: //name// [facility] Test Date: 2018-02-10 Test Time: 04:32:55 Pat Name: WILLIAN JARVIS Department: Room: [address] Gender: F [place] Hammerer: PAMELA : 1960 Requested By: James Carias Order Number: [id number] Reading MD: Parth Garcia Measurements Intervals [place] Rate: 102 P: 120 [place]: 196 QRS: 50 QRSD: 116 T: 20 QT: 349 QTc: 455 Interpretive Statements Sinus tachycardia Nonspecific intraventricular conduction delay Abnormal inferior Q waves Compared to ECG 02/09/2018 06:59:39 Sinus rhythm no longer present Atrial abnormality no longer present Electronically Signed On 02-10-2018 10:48:50 CDT by Parth Garcia [email or web address] <ELECTRONICALLY SIGNED> By: Parth Garcia MD, [facility] 02/10/18 1048 0432 0432 Parth Garcia MD, [facility] /EPI
[2018-02-10 12:39] VITALS: BP 139/80
--- NOTE | 2018-02-10 15:52 | NUR ---
CM SPOKE TO PATIENT TO DISCUSS HOME SITUATUATION, DISCHARGE PLANNING, AND TO INFORM OF THE ROLE OF CM. PATIENT ALERT AND ORIENTED. PATIENT RESIDES AT HOME WITH SPOUSE. PATIENT ABLE TO PERFORM INTEGRITY CONSULTANT. PATIENT USES HOME O2 AND TRILOGY AT HOME. PATIENT HAS A HX OF HH WITH [facility] HOME. CM WILLL REMAIN AVAILABLE TO ASSIST AND FOLLOW NEEDED.
[2018-02-10 16:00] VITALS: BP 136/70
--- NOTE | 2018-02-10 18:41 | NUR ---
VSS, PT IS PROGRESSING TOWARDS GOAL, PT IS TRACING SR/ST ON THE MONITOR, ON 3-4 L NC AND WEARS BIPAP AT HS, PT IS UP WITH STAND BY, HOURLY ROUNDS COMPLETED.
[2018-02-11] VITALS: BP 107/50
--- NOTE | 2018-02-11 03:23 | NUR ---
ASSUMED CARE OF PT AT 1900. PT IS ALERT AND ORIENTED. VSS. PERRLA. PT IS UP AD KURTIS. PT IS WEARING BIPAP. PT IS NPO FOR ABDOMINAL US IN AM. PT IS SINUS RYTHM ON THE TELEMETRY. PT IS RESTING COMFORTABLY IN BED. RESPIRATIONS ARE EVEN AND NONLABORED. WILL CONTINUE TO MONITOR PT.
[2018-02-11 03:45] VITALS: BP 129/63
[2018-02-11 04:34] LABS: ABSOLUTE BASOPHILS 0.1 thou/uL (0.0-0.2); ABSOLUTE LYMPHOCYTES 1.3 thou/uL (0.8-5.3); ABSOLUTE MONOCYTES 0.6 thou/uL (0.0-1.2); ABSOLUTE NEUTROPHILS 20.5 thou/uL (1.6-8.1); BASOPHILS 0.5 %; HEMATOCRIT 41.1 % (37.0-47.0); HEMOGLOBIN 13.1 gm/dL (12.0-15.0); LYMPHOCYTES 5.7 %; MCH 26.7 pg (26.0-34.0); MCV 83.4 fL (80.0-100.0); MONOCYTES 2.5 %; MPV 8.6 fl. (7.2-11.1); NUCLEATED RBCS 0 /100WBC; PLATELET COUNT* 303 thou/uL (150-400); POLYS 91.3 %; RBC 4.93 mil/uL (4.20-5.00); RDW-CV 14.5 % (10.5-14.5); WBC 22.5 thou/uL (4.0-11.0)
[2018-02-11 09:45] VITALS: BP 116/63
[2018-02-11 12:00] VITALS: BP 128/56; BP 128/70
[2018-02-11 16:41] VITALS: BP 139/63
--- NOTE | 2018-02-11 17:40 | NUR ---
PATIENT ON BIPAP WHILE SLEEPING/NAPS. 02 3L NC WHILE EATING AND AWAKE. SCHED IV ABX INFUSED ORDERED. PATROL MAN REMAINS IN PLACE. PREDNISONE TO START TOMORROW.
[2018-02-11 20:00] VITALS: BP 152/82
[2018-02-12] VITALS: BP 149/80
[2018-02-12 04:00] VITALS: BP 163/98
--- NOTE | 2018-02-12 05:36 | NUR ---
this nurse assumes care of pt 02/11/18 at 1930, pt alert and oriented x 4, denies pain, remains on cardiac monitoring tracing sinus tach, pt denies chest pain, denies soa,lung sounds diminished throughout, BIPAP in place throughout this shift with the exception of when pt is up with assist to bsc, pts fsbs at 0130 is37, pt was given pudding and apple juice, Blood sugar then 101, at 0400 pt hypoglycemic at 45, pt again receives apple juice and pudding, pt resting in bed with BIPAP off since 429, iv abx infusing, siderails up x2, call light within reach
[2018-02-12 07:45] VITALS: BP 146/87
[2018-02-12] MEDS ORDERED: AUGMENTIN 875-1 EACH PO (10:27)
[2018-02-12] MEDS ORDERED: PREDNISONE 10 M10 MG PO (10:27)
[2018-02-12 10:31] VITALS: BP 146/87
[2018-02-12] MEDS ORDERED: TYLENOL325 MG PO (10:56)
--- NOTE | 2018-02-12 14:32 | NUR ---
PATIENT REMAINED ON 3L, BIPAP WITH NAPS AND SLEEPING. IV ABX INFUSED ORDERED. INSULIN GIVEN WITH MEALS. UP WITH SBA AROUND ROOM. PATIENT DISCHARGED THIS AFTERNOON TO HOME WITH SPOUSE. VERBALIZES UNDERSTANDING OF PAPERWORK AND SCRIPT. PATIENT LEFT VIA WHEELCHAIR WITH ALL BELONGINGS.
== END 2018-02-12 14:33 | disposition home or self-care (01) | DRG 177 ==
LOC: M.ERS 06:43 → M.TBA-ER 08:11 → M.2W 08:11
PROVIDERS: Emergency Medicine; Emergency Medicine Emergency Medical Services; ADMIT Internal Medicine
PROC: 5A09357 Assistance with Respiratory Ventilation, Less than 24 Consecutive Hours, Continuous Positive Airway Pressure (ICD-10-PCS; principal; 2018-02-09)
PROC: 5A09357 Assistance with Respiratory Ventilation, Less than 24 Consecutive Hours, Continuous Positive Airway Pressure (ICD-10-PCS; 2018-02-11)
DX: J69.0 Pneumonitis due to inhalation of food and vomit (principal); J96.20 Acute and chronic respiratory failure, unspecified whether with hypoxia or hypercapnia; R65.11 Systemic inflammatory response syndrome (SIRS) of non-infectious origin with acute organ dysfunction; I13.0 Hypertensive heart and chronic kidney disease with heart failure and stage 1 through stage 4 chronic kidney disease, or unspecified chronic kidney disease; J44.0 Chronic obstructive pulmonary disease with (acute) lower respiratory infection; F17.210 Nicotine dependence, cigarettes, uncomplicated; I50.9 Heart failure, unspecified; K21.9 Gastro-esophageal reflux disease without esophagitis; M19.90 Unspecified osteoarthritis, unspecified site; F32.9 Major depressive disorder, single episode, unspecified; E78.5 Hyperlipidemia, unspecified; E11.22 Type 2 diabetes mellitus with diabetic chronic kidney disease; N18.3 Chronic kidney disease, stage 3 (moderate); Z88.8 Allergy status to other drugs, medicaments and biological substances; Z91.013 Allergy to seafood; Z79.2 Long term (current) use of antibiotics; Z79.82 Long term (current) use of aspirin; Z79.4 Long term (current) use of insulin

== ENCOUNTER 2018-02-15 17:57 | Inpatient (IN) | payer MEDICARE ==
[~2018-02-15] VITALS: Ht 149.9 cm; Wt 99.4 kg
[~2018-02-15 17:57] MED LIST changes: +AUGMENTIN 875-1 EACH PO; +NEBULIZER MISCELL; +TYLENOL325 MG PO
[2018-02-15 18:04] VITALS: BP 181/87
[2018-02-15 18:42] LABS: HEMATOCRIT 45.7 % (37.0-47.0); HEMOGLOBIN 14.4 gm/dL (12.0-15.0); MCH 26.3 pg (26.0-34.0); MCHC 31.4 g/dL (28.0-37.0); MCV 83.7 fL (80.0-100.0); MPV 8.6 fl. (7.2-11.1); NUCLEATED RBCS 0 /100WBC; PLATELET COUNT* 317 thou/uL (150-400); RBC 5.46 mil/uL (4.20-5.00); RDW-CV 14.6 % (10.5-14.5); WBC 20.4 thou/uL (4.0-11.0)
[2018-02-15 18:48] LABS: BE -1.1 mmol/L (-2 to +3); HCO3 25.4 mmol/L (22.0-26.0); PCO2 49.1 mmHg (35.0-45.0); PO2 86.5 mmHg (75.0-100.0); pH 7.332 (7.340-7.450)
[2018-02-15 18:54] LABS: ANION GAP 9 mmol/L (7-16); APTT 22.9 Seconds (25.0-31.3); BUN 38 mg/dL (7-18); CALCIUM 8.7 mg/dL (8.5-10.1); CHLORIDE 104 mmol/L (98-107); CO2 26 mmol/L (21-32); CREATININE 1.6 mg/dL (0.6-1.3); GLUCOSE 474 mg/dL (70-99); INR 1.1; POTASSIUM 3.9 mmol/L (3.5-5.1); PROTIME 10.3 Seconds (9.20-11.50); SODIUM 139 mmol/L (136-145)
[2018-02-15 19:05] LABS: ALKALINE PHOSPHATASE 114 U/L (46-116); NT-PRO BRAIN NAT PEPTIDE 7401 pg/mL (<300); SGOT 12 U/L (15-37); SGPT 27 U/L (30-65); TOTAL BILIRUBIN 0.2 mg/dL (<0.1-1.0); TROPONIN-I LEVEL <0.06 ng/mL (<0.06)
[2018-02-15 19:09] LABS: ABSOLUTE LYMPHOCYTES 3.3 thou/uL (0.8-5.3); ABSOLUTE MONOCYTES 0.6 thou/uL (0.0-1.2); ABSOLUTE NEUTROPHILS 16.5 thou/uL (1.6-8.1)
[2018-02-15 19:11] LABS: PLATELET ESTIMATE ADEQUATE
[2018-02-15 20:05] VITALS: BP 174/115
[2018-02-15 20:30] VITALS: BP 174/89
--- NOTE | 2018-02-15 22:59 | NUR ---
PT ADMITTED ON THE TELE FLOOR AT 2004 CAME IN ON A STRETCHER IV ANTIBIOTICS RUNNING AND ON 3 L NC. SHE STATES THAT SHE USUALLY WEARS 3 L AT HOME AND BIPAP AT NIGHT. SATURATION IS 95% ON 3 LNC. PT WOULD NOT SUPPORT THE 2 L NC ORDERED. NO COPLAIN OF PAIN NO SOB NOTICED. SHE GETS UP ON HER OWN TO USE THE COMMODE. HER VITALS ARE WITHIN NORMAL LIMIT EXCEPT BP HIGH MAYBE BECAUD OF MOVING. WILL MONITOR BP LATER DURING THE SHIFT. IV ANTIBITIC RUNNING GÓMEZ NOW ORDERED. PT IS LAYING IN BED. CALL LIGHT AT REACH, BIPAP ON. ADMISSION ASSESSEMENT PERFORMED REFER TO CHARTING. SHE IS SINUS TACHYCARDIA ON THE DIRECTOR OF CORPORATE SPONSORSHIPS. HER HR IS MAINTAINED IN THE LOW 100. WILL CONTINUE TO MONITOR
[2018-02-16] VITALS (7 sets, daily range): BP systolic 123–179; BP diastolic 70–91
--- NOTE | 2018-02-16 07:02 | NUR ---
BP 160/91. GAS DISTRIBUTION SUPERVISOR CONTACTED TO UPDATE MED LIST. MED LIST IS UPDATED NOW BUT WAITING FOR PHARMACY TO VERIFY THEM BEFORE i CAN GET ACCESS. WILL PASS ON TO DAY SHIFT NURSE.
--- NOTE | 2018-02-16 10:48 | EKG ---
[place] [address] ELECTROCARDIOGRAM REPORT Name: MATHEUSWILLIAN Flores Room: [address] IN [facility]#: [id number] Admission: 02/15/18 Attend Phys: Lucien Jordan MD Discharge: Date of : 58 Report #: [id number] THIS REPORT FOR: //name// [facility] ED Test Date: 2018-02-15 Test Time: 18:34:00 Pat Name: WILLIAN JARVIS Department: Room: Gender: F Bingo Cashier: MADELAINE : 1960 Requested By: Terry Cota Order Number: [id number] MD: Parth Garcia Measurements Intervals [place] Rate: 116 P: 74 SD: 172 QRS: 50 QRSD: 107 T: -24 QT: 351 QTc: 488 Interpretive Statements Sinus tachycardia left atrial enlargement Consider inferior infarct Borderline T abnormalities, inferior leads Baseline wander in lead(s) V5 Compared to ECG 02/10/2018 no change Electronically Signed On 02-16-2018 10:48:22 CDT by Parth Garcia [email or web address] <ELECTRONICALLY SIGNED> By: Parth Garcia MD, [facility] 02/16/18 1048 1834 1834 Parth Garcia MD, [facility] /EPI
--- NOTE | 2018-02-16 14:14 | NUR ---
Pt is A&O. Resides at home with her . Independent with ADLs. Wears home o2 and uses a Trilogy through [employer]. Hx of [facility]. No hx of SNF. Goal is to return home at me. Following
--- NOTE | 2018-02-16 18:08 | NUR ---
ASSUMED PT CARE AT 0700 PT IS ALERT AND ORIENTED X 4 PT DENIES PAIN OR SOA ON 3L/NC, PT IS UP AD KURTIS PT IS NOT A FALL RISK, PT IS SR ON THE MONITOR, PT IS ACCU CHECK, PT IN ANTIBIOTICS, CARDIOLOGY IS CONSULTED, PT DIET ADVANCED TO HEART HEALTHY, PT IS PLEASANT AND COOPERATIVE, WILL CONTINUE TO MONITOR
[2018-02-17 04:03] VITALS: BP 155/83
[2018-02-17 04:26] LABS: ABSOLUTE BASOPHILS 0.1 thou/uL (0.0-0.2); ABSOLUTE EOSINOPHILS 0.1 thou/uL (0.0-0.7); ABSOLUTE LYMPHOCYTES 3.1 thou/uL (0.8-5.3); ABSOLUTE MONOCYTES 1.7 thou/uL (0.0-1.2); ABSOLUTE NEUTROPHILS 17.1 thou/uL (1.6-8.1); BASOPHILS 0.6 %; EOSINOPHILS 0.2 %; HEMATOCRIT 47.9 % (37.0-47.0); HEMOGLOBIN 15.2 gm/dL (12.0-15.0); LYMPHOCYTES 13.8 %; MCH 26.7 pg (26.0-34.0); MCHC 31.8 g/dL (28.0-37.0); MCV 83.8 fL (80.0-100.0); MONOCYTES 7.7 %; MPV 8.7 fl. (7.2-11.1); NUCLEATED RBCS 0 /100WBC; PLATELET COUNT* 309 thou/uL (150-400); POLYS 77.7 %; RBC 5.71 mil/uL (4.20-5.00); RDW-CV 14.5 % (10.5-14.5); WBC 22.1 thou/uL (4.0-11.0)
--- NOTE | 2018-02-17 04:40 | NUR ---
ASSUMED PT CARE AT 1930, PT IS A&OX4, TRACING NSR ON THE MONITOR, ON 3L NC SATTING MID TO HIGH 90'S. BIPAP AT [facility]. PT DENIES ANY PAIN OR NEEDS AT THIS TIME. PT IS UP AD KURTIS AND APPEARS STABLE IN HER ROOM. HOURLY ROUNDING COMPLETED FOR PT SAFETY.
[2018-02-17 09:00] VITALS: BP 133/70
--- NOTE | 2018-02-17 10:39 | NUR ---
Nutrition: screen for BMI>40. Pt in with PNA, hx CHF, COPD. Pt wt hx variable: currently 213 lb, last week 250 lb, Ana was 200 lb. Pt reports good appetite, doing well with meals on cardiac and CHO controlled diets. B-268, BUN 38, Cr 1.6, albumin 3.0. Lasix, prednisone and other meds reviwed. Pt stated she would like diet education, "but not today." Assessed at low nutrition risk, RD to follow up 02/21/18.
--- NOTE | 2018-02-17 11:01 | CON ---
[address] [address] CONSULTATION Name: PARISH JARVISS Sandra Room: [address] IN ..#: [id number] Admission: 02/15/18 Attend Phys: Lucien Jordan MD Discharge: Date of : 58 Report #: [id number] THIS REPORT FOR: //name// CC: Lucien Abreu REQUESTING PHYSICIAN: Lucien Jordan MD REASON FOR CONSULTATION: Pneumonia. DISCUSSION: The patient is a 57-year-old woman with a history of tobacco abuse. She does have a history of chronic respiratory failure and actually fairly mild COPD. She is followed in my office. This spring, she has been in the hospital, treated for urinary tract infection then as well as pneumonia. She was seen earlier this month and had right lower lobe infiltrate. Cultures done at that time of her blood were negative. She was discharged I believe on 02/12/2018. Currently, I do not have any discharge summary available. She presented to the Emergency Department again yesterday evening with marked increased shortness of breath. Not having any chest pain. She has had some cough just scant sputum production. She had been discharged with a prednisone taper as well as antibiotics in the form of Augmentin. This morning, she is feeling better. Did sleep with BiPAP last night. She has a history of tobacco abuse. She notes her last cigarette was about 2-1/2 weeks ago. She is only smoking several cigarettes per day. She is followed in my office. She had full pulmonary function studies done less than a year ago. At that time, they were almost completely normal. Her FEV1 was 1.86, which was 94% of predicted. Her FEV1/FVC ratio was 83% with normal lung volumes and diffusion capacities. She does have chronic respiratory failure. Nocturnal hypoxemia, was noted to be hypercapnic in the past. She has had several sleep studies. They have not confirmed any significant obstructive sleep apnea. However, given her respiratory failure, was started on a Trilogy several years ago, which has worked out well for her. She does use that every night. Overall that has helped her. As far as bronchodilators go, she is off all the inhalers. The cost was an issue. She does have a nebulizer at home with DuoNeb. She may have days where she does not use it all. When she is having more problems, she will increase it up to 4 times a day. She was doing even more when she was having more trouble breathing. She normally is not on oxygen during the day, though she does have portable tanks. She does bleed O2 into her Trilogy. She has a known history of coronary artery disease. Does see Kilo Lou. She notes she had a cardiac catheterization done with Dr. Lou earlier in this year [place] [address] CONSULTATION Name: WILLIAN JARVIS Room: [address] IN [facility].#: [id number] Admission: 02/15/18 Attend Phys: Lucien Jordan MD Discharge: Date of : 58 Report #: [id number] PAST MEDICAL AND SURGICAL HISTORY: Remarkable for prior episodes of pneumonia. She had pneumococcal pneumonia, was hospitalized here at [facility] several years ago. She is a diabetic (type 2), has diabetic nephropathy, retinopathy. She has had a recent cataract removed from her left eye. She has not yet had a right eye taking care of. 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 SOCIAL HISTORY: Smoker as noted. She is disabled. FAMILY HISTORY: Positive for diabetes, hypertension, heart disease. Her father committed suicide. REVIEW OF SYSTEMS: A 12-point ROS was done. She denies any difficulty swallowing, though she does need to be careful with the portion size and she chews her food well. She has not had any nausea or vomiting. No hemoptysis, no hematemesis or blood in her stools. No chest pain. Just did feel more short of breath. Her weight has been stable, in fact she has actually been able to lose some weight. No syncopal episodes. No palpitations. LABORATORY AND X-RAY FINDINGS: Chest x-rays were reviewed. Studies done earlier this spring, she did have a right lower lobe infiltrate. Overall it has improved on films done last night. There may be also some infiltrate seen in the left base. She has not had a CT chest here at [facility]. Echocardiogram done earlier this month while she was here at [facility] revealed EF of around 50%. RV was normal. She did have neau-os-ptcsmenl mitral regurgitation. Her chemistry, BUN is 38, creatinine of 1.6, serum bicarbonate of 26, potassium of 3.9. ProBNP last night was 7400. White blood cell count last night was 20,400; down from 22,500 earlier in the month. Hemoglobin 14.4, hematocrit of 45.7. MRSA screen done in October when she was here was negative. Arterial blood gases done last night, she had a pH of 7.33, pCO2 of 49, pO2 of 87, bicarbonate of 25 with a saturation 95%. That was on 6 liters. In July, her pCO2 was essentially normal. When she was here several years ago, (at which time a Trilogy was set up), her pCO2 gotten as high as 74. Blood cultures done last week were no growth. Repeat sent last night. She did have a ventilation perfusion lung scan on 02/09/2018 which was thought to be low probability. IMPRESSION: 1. Right lower lobe infiltrate. It has improved on imaging studies. Difficult to ascertain if she has any significant pleural effusion. Does not appear so. Much of this is probably all related to pneumonia. 2. Mild chronic obstructive pulmonary disease. Had almost completely normal PFTs done less than a year ago. 3. Chronic respiratory failure. She is on noninvasive ventilation at night (Trilogy) [place] [address] CONSULTATION Name: WILLIAN JARVIS Room: [address] IN [facility].#: [id number] Admission: 02/15/18 Attend Phys: Lucien Jordan MD Discharge: Date of : 58 Report #: [id number] 4. Coronary artery disease. 5. Diabetes mellitus. 6. Chronic kidney disease. 7. Obesity, has lost some weight. RECOMMENDATIONS: 1. We will obtain noncontrast CT of her chest. Can visualize infiltrates better to rule out a mass or significant pleural effusion that may require thoracentesis. 2. Continue her DuoNeb every 4 hours. 3. We will start Mucinex and also work on better pulmonary toilet. 4. Continue with ventilatory support at night (BiPAP while she is here in the hospital unless someone brings in her Trilogy). 5. 100% smoking cessation is certainly imperative. <ELECTRONICALLY SIGNED> By: Pam Link MD 02/17/18 1101 1017 1100Pam Link MD /nt
[2018-02-17 12:00] VITALS: BP 119/58
[2018-02-17 16:00] VITALS: BP 129/61
--- NOTE | 2018-02-17 17:17 | NUR ---
ASSUMED PT CARE AT 0700 PT IS ALERT AND ORIENTED X 4 PT C/O LEG PAIN GAVE TYLENOL REASSESSED PT WHO STATES TYLENOL WORKED GAVE PT FLEXERIL FOR LEG CRAMPS, PT DENIES SOA, PT IS SR ON THE MONITOR, PT IS UP AD KURTIS PT IS NOT A FALL RISK, PT AROUND 1300 EATING ICE CREAM THAT FAMILY BROUGHT PT THIS NURSE EDUCATED PT ON THE IMPORTANCE OF STICKING TO DIET THAT ICE CREAM SHAKE WILL RAISE BLOOD SUGAR PT STATES UNDERSTANDING, PT VANCYO TROUGH LEVEL LOW PHARMACY IS REDOSING, PT BLOOD SUGAR WAS LOW THIS MORNING GAVE JUICE AND RECHECKED PT BLOOD SUGAR IN APPROPRIATE RANGE AFTER TREATED, WILL CONTINUE TO MONITOR
[2018-02-17 20:00] VITALS: BP 134/58
[2018-02-18] VITALS (7 sets, daily range): BP systolic 112–159; BP diastolic 56–97
--- NOTE | 2018-02-18 06:28 | NUR ---
RECEIVED REPORT AND ASSUMED CARE AT 1900. VSS. CARDIAC MONITORING IN PLACE. PT REPORTS PAIN IN LE, DECLINES ANY PRN PAIN MEDICATION AT THIS TIME. ASSESSMENT COMPLETED CHARTED. PT UP AD KURTIS IN ROOM, 3LNC WHILE AWAKE, PT WEARS BIPAP AT NIGHT. MEDICATIONS ADMIN PER EMAR. HOURLY ROUNDING COMPELTED, ALL NEEDS MET. PT TOOK SHOWER THIS AM. REPORTS GENERALIZED PAIN/ ACHING. PRN MEDICATION ADMIN PER ORDERS. WILL CONTINUE TO MONITOR FOR REMAINDER OF THE SHIFT
--- NOTE | 2018-02-18 15:20 | NUR ---
ASSUMED PT CARE AT 0700 PT IS ALERT AND ORIENTED X 4 PT C/O PAIN DENIES SOA ON 3L/NC, GAVE PT TYLENOL REASSESSED PT STATES PAIN MEDS HELPED, PT IS UP AD KURTIS PT IS NOT A FALL RISK, PT IS SR ON THE MONITOR, PHYSICIAN ORDERED CHANGE STATUS PT IS NOW MEDICAL SURGICAL, PT WEARS BIPAP AT NIGHT, WILL CONTINUE TO MONITOR
[2018-02-19 04:00] VITALS: BP 143/75
--- NOTE | 2018-02-19 04:39 | NUR ---
RECEIVED REPORT AND ASSUMED CARE AT 1900. VSS. PT M/S STATUS. ASSESSMENT COMPLETED CHARTED. PT ON 3L NC, UP AD KURTIS IN ROOM. PT DENIES ANY COMPLAINTS OF PAIN. DISCUSSED PLAN OF CARE WITH PT, VERBALIZED UNDERSTANDING. BED LOCKED IN LOWEST POSITION, CALL LIGHT WITHIN REACH. MEDICATION ADMIN PER EMAR. HOURLY ROUDNING COMPLETED, ALL NEEDS MET. WILL CONTINUE TO MONITOR FOR REMAINDER OF THE SHIFT
[2018-02-19 06:12] LABS: ABSOLUTE BASOPHILS 0.1 thou/uL (0.0-0.2); ABSOLUTE EOSINOPHILS 0.1 thou/uL (0.0-0.7); ABSOLUTE LYMPHOCYTES 2.8 thou/uL (0.8-5.3); ABSOLUTE MONOCYTES 1.5 thou/uL (0.0-1.2); ABSOLUTE NEUTROPHILS 14.5 thou/uL (1.6-8.1); BASOPHILS 0.7 %; EOSINOPHILS 0.4 %; HEMATOCRIT 47.3 % (37.0-47.0); HEMOGLOBIN 14.9 gm/dL (12.0-15.0); LYMPHOCYTES 14.9 %; MCH 26.5 pg (26.0-34.0); MCHC 31.5 g/dL (28.0-37.0); MCV 83.9 fL (80.0-100.0); MONOCYTES 7.7 %; MPV 9.4 fl. (7.2-11.1); NUCLEATED RBCS 0 /100WBC; PLATELET COUNT* 252 thou/uL (150-400); POLYS 76.3 %; RBC 5.64 mil/uL (4.20-5.00); RDW-CV 14.5 % (10.5-14.5)
[2018-02-19 06:20] LABS: CALCIUM 8.5 mg/dL (8.5-10.1); CREATININE 1.4 mg/dL (0.6-1.3); POTASSIUM 3.5 mmol/L (3.5-5.1)
[2018-02-19 09:30] VITALS: BP 116/47
--- NOTE | 2018-02-19 11:47 | NUR ---
ASSUMED PT CARE AT 0700 PT IS ALERT AND ORIENTED X 4 PT C/O LEG PAIN DENIES SOA ON 3L/NC, GAVE PT TYLENOL AND FLEXERIL REASSESSED PT WHO STATES IT HELPED, PT IS UP AD KURTIS PT IS NOT A FALL RISK, PT IS MEDICAL SURGICAL STATUS, WILL CONTINUE TO MONITOR
[2018-02-19 15:41] VITALS: BP 149/72
[2018-02-19 19:45] VITALS: BP 143/62
[2018-02-20 04:00] VITALS: BP 165/105; BP 165/82
--- NOTE | 2018-02-20 04:11 | NUR ---
RECEIVED REPORT AND ASSUMED CARE AT 1900. VSS. PT IS MED SURG STATUS. ASSESSMENT COMPLETED CHARTED. PT DENIES ANY COMPLAINTS OF PAIN. DISCUSSED PLAN OF CARE WITH PT, VERBALIZED UNDERSTANDING. PT IS UP AD KURTIS IN ROOM, WEARS BIPAP AT [facility]. BED LOCKED IN LOWEST POSITION, CALL LIGHT WITHIN REACH. MEDICATION ADMIN PER EMAR. HOURLY ROUDNING COMPLETED, ALL NEEDS MET. WILL CONTINUE TO MONITOR FOR REMAINDER OF THE SHIFT
[2018-02-20 09:00] VITALS: BP 151/86
--- NOTE | 2018-02-20 09:58 | NUR ---
ASSUMED PT CARE AT 0700 PT IS ALERT AND ORIENTED X 4 PT C/O LEG PAIN GAVE TYLENOL AND FLEXRIL WHICH PT STATES HELPED, PT DENIES SOA ON RA, PT IS ON BIPAP AT HS, PT IS MEDICAL SURGICAL STATUS, PT IS UP AD KURTIS PT IS NOT A FALL RISK, PT VSS, PT GETTING NEW DOSE OF VANCYO, WILL CONTINUE TO MONITOR
[2018-02-20 11:40] VITALS: BP 153/99
[2018-02-20 15:54] VITALS: BP 148/84
[2018-02-20 20:00] VITALS: BP 138/76
[2018-02-21] VITALS: BP 164/86
--- NOTE | 2018-02-21 05:15 | NUR ---
ASSUMED PT CARE AT 1930, PT IS A&OX4, PT IS MED SURG STATUS. VSS. PT IS ON 2L NC SATTING MDI TO HIGH 90'S. PT WEARS BIPAP AT [facility]. PT IS UP KURTIS IN HER ROOM. PT VOICED ONLY WANTING 30 UNITS OF LANTUS INSULIN THIS SHIFT, SHE WAS AFRAID HER BG WOULD GET TOO LOW. 30 UNITS GIVEN THIS SHIFT. PT DENIES ANY PAIN OR NEEDS AT THIS TIME. BED IN LOW POSITION, CALL LIGHT IN REACH. HOURLY ROUNDING COMPLETED FOR PT SAFETY.
[2018-02-21 08:16] VITALS: BP 143/73
--- NOTE | 2018-02-21 10:00 | NUR ---
ASSUMED CARE OF PT AT 0730. PT RESTING IN RECLINER WAITING FOR BREAKFAST. PT A&0X4, COMPLAINS OF GENERALIZED PAIN. TREATED WITH PRN TYLENOL WITH RELIEF. PT MED SURG STATUS. ON 2L NC SAT 97%. PT UP AD KURTIS IN ROOM. PT GOAL FOR TODAY IS TO INCREASE ACTIVITY AND POSSIBLE DISCHARGE HOME. AM ASSESSMENT CHARTED. MEDICATIONS PER MAR. PT REPOSITIONS SELF. HOURLY ROUNDING OBSERVED. BED IN LOW POSITION. CALL LIGHT WITHIN REACH. WILL CONTINUE PLAN OF CARE.
[2018-02-21 16:00] VITALS: BP 133/70
--- NOTE | 2018-02-21 17:04 | NUR ---
NO ACUTE CHANGES THROUGHOUT SHIFT. REFER TO CHARTING. PT CONTINUES TO BE MED SURG STATUS. ON 2L NC SAT UPPER 90'S. DENIES ANY SHORTNESS OF BREATH OR PAIN THIS AFTERNOON. PT UP AD KURTIS IN ROOM. PT SHOWERED INDEPENDENTLY THIS AFTERNOON. AMBULATED HALLWAYS THIS AFTERNOON- TOLERATED WELL. PT PROGRESSING TOWARDS GOALS. GOAL IS TO DISCHARGE HOME TOMORROW 02/22. MEDICATIONS PER SEP. PT REPOSITIONS SELF. HOURLY ROUNDING OBSERVED. BED IN LOW POSITION. CALL LIGHT WITHIN REACH. WILL CONTINUE PLAN OF CARE.
[2018-02-21 20:00] VITALS: BP 142/74
[2018-02-22] VITALS: BP 155/83
--- NOTE | 2018-02-22 04:04 | NUR ---
PT ALERT ORIENTED. UP AD KURTIS IN ROOM. O2 AT 2 LITERS NC DAY. CPAP HS WITH 3 LITER BLEED IN. SL IN R ARM NO LONGER FLUSHING. NO IV MEDS. PT STATED SHE DID NOT WANT ANOTHER IV AND SHE WOULD POSSIBLY DC TODAY. MED SURG STATUS.
--- NOTE | 2018-02-22 07:10 | NUR ---
CHANGE OF SHIFT BEDSIDE REPORT GIVEN PATIENT SEEN IN BED ASLEEP ASSUMED PATIENT
[2018-02-22 08:00] VITALS: BP 133/74
--- NOTE | 2018-02-22 10:59 | NUR ---
CHNAGE OF SHIFT BEDSIDE REPORT GIVEN PATIENT SEEN IN BED ASLEEP ASSUMED PATIENT CARE
--- NOTE | 2018-02-22 13:30 | NUR ---
PATIENT DISCHARGED TO HOME ALL DC INFORMATION GIVEN AND ACKNOWLEDGED AND SIGNED COPIES GIVEN IV AND HEART MONITOR REMOVED PERSONAL BELONGINGS RETURNED ASSISTED OUT VIA WC GOOD CONDITION TO WAITING CAR
[2018-02-22] MEDS ORDERED: GUAIFENESIN1200 MG PO (15:19)
[2018-02-22] MEDS ORDERED: LEVAQUIN 750 M750 MG PO (15:26)
[2018-02-22] MEDS ORDERED: NEBULIZER MISCELL (15:38)
[2018-02-22 15:44] VITALS: BP 133/74
== END 2018-02-22 16:00 | disposition home or self-care (01) | DRG 177 ==
LOC: M.ERS 17:57 → M.TBA-ER 19:15 → M.2W 19:15
PROVIDERS: Emergency Medicine; Internal Medicine; Internal Medicine Pulmonary Disease; ADMIT Internal Medicine
PROC: 5A09357 Assistance with Respiratory Ventilation, Less than 24 Consecutive Hours, Continuous Positive Airway Pressure (ICD-10-PCS; principal; 2018-02-16)
PROC: 5A09357 Assistance with Respiratory Ventilation, Less than 24 Consecutive Hours, Continuous Positive Airway Pressure (ICD-10-PCS; 2018-02-17)
PROC: 5A09357 Assistance with Respiratory Ventilation, Less than 24 Consecutive Hours, Continuous Positive Airway Pressure (ICD-10-PCS; 2018-02-18)
PROC: 5A09357 Assistance with Respiratory Ventilation, Less than 24 Consecutive Hours, Continuous Positive Airway Pressure (ICD-10-PCS; 2018-02-19)
PROC: 5A09357 Assistance with Respiratory Ventilation, Less than 24 Consecutive Hours, Continuous Positive Airway Pressure (ICD-10-PCS; 2018-02-20)
DX: J69.0 Pneumonitis due to inhalation of food and vomit (principal); J96.20 Acute and chronic respiratory failure, unspecified whether with hypoxia or hypercapnia; I50.33 Acute on chronic diastolic (congestive) heart failure; I21.3 ST elevation (STEMI) myocardial infarction of unspecified site; G93.41 Metabolic encephalopathy; E11.10 Type 2 diabetes mellitus with ketoacidosis without coma; I13.0 Hypertensive heart and chronic kidney disease with heart failure and stage 1 through stage 4 chronic kidney disease, or unspecified chronic kidney disease; I42.9 Cardiomyopathy, unspecified; Z68.41 Body mass index [BMI] 40.0-44.9, adult; J44.1 Chronic obstructive pulmonary disease with (acute) exacerbation; J44.0 Chronic obstructive pulmonary disease with (acute) lower respiratory infection; Y92.89 Other specified places as the place of occurrence of the external cause; K21.9 Gastro-esophageal reflux disease without esophagitis; M19.90 Unspecified osteoarthritis, unspecified site; F32.9 Major depressive disorder, single episode, unspecified; E78.5 Hyperlipidemia, unspecified; N18.3 Chronic kidney disease, stage 3 (moderate); F17.210 Nicotine dependence, cigarettes, uncomplicated; I25.10 Atherosclerotic heart disease of native coronary artery without angina pectoris; E11.21 Type 2 diabetes mellitus with diabetic nephropathy; E11.319 Type 2 diabetes mellitus with unspecified diabetic retinopathy without macular edema; E66.9 Obesity, unspecified; R00.0 Tachycardia, unspecified; D72.829 Elevated white blood cell count, unspecified; T38.0X5A Adverse effect of glucocorticoids and synthetic analogues, initial encounter; G47.00 Insomnia, unspecified; Z99.81 Dependence on supplemental oxygen; Z79.899 Other long term (current) drug therapy; Z79.82 Long term (current) use of aspirin; Z79.4 Long term (current) use of insulin; Z88.8 Allergy status to other drugs, medicaments and biological substances; Z91.018 Allergy to other foods; Z83.3 Family history of diabetes mellitus; Z82.49 Family history of ischemic heart disease and other diseases of the circulatory system; Z81.8 Family history of other mental and behavioral disorders; Z71.6 Tobacco abuse counseling

== ENCOUNTER 2018-04-18 10:18 | Inpatient (IN) | payer MEDICARE ==
[~2018-04-18] VITALS: Ht 147.3 cm; Wt 110.1 kg
[~2018-04-18 10:18] MED LIST changes: +GUAIFENESIN1200 MG PO
[2018-04-18 10:20] VITALS: BP 183/101
[2018-04-18] MEDS ORDERED: TRULICITY0.75 MG/0. SUBQ (10:27)
[2018-04-18 10:54] LABS: ABSOLUTE EOSINOPHILS 0.6 thou/uL (0.0-0.7); ABSOLUTE LYMPHOCYTES 2.5 thou/uL (0.8-5.3); ABSOLUTE MONOCYTES 0.9 thou/uL (0.0-1.2); ABSOLUTE NEUTROPHILS 8.1 thou/uL (1.6-8.1); BASOPHILS 0.2 %; EOSINOPHILS 5.2 %; HEMATOCRIT 37.4 % (37.0-47.0); HEMOGLOBIN 12.1 gm/dL (12.0-15.0); LYMPHOCYTES 20.6 %; MCH 26.4 pg (26.0-34.0); MCHC 32.4 g/dL (28.0-37.0); MCV 81.6 fL (80.0-100.0); MONOCYTES 7.6 %; MPV 7.7 fl. (7.2-11.1); NUCLEATED RBCS 0 /100WBC; PLATELET COUNT* 273 thou/uL (150-400); POLYS 66.4 %; RBC 4.59 mil/uL (4.20-5.00); RDW-CV 16.1 % (10.5-14.5); WBC 12.3 thou/uL (4.0-11.0)
[2018-04-18 11:10] LABS: ANION GAP 7 mmol/L (7-16); BUN 33 mg/dL (7-18); CALCIUM 8.3 mg/dL (8.5-10.1); CHLORIDE 106 mmol/L (98-107); CO2 27 mmol/L (21-32); CREATININE 1.5 mg/dL (0.6-1.3); GLUCOSE 168 mg/dL (70-99); POTASSIUM 3.7 mmol/L (3.5-5.1); SODIUM 140 mmol/L (136-145)
[2018-04-18 11:22] LABS: ALBUMIN 2.6 g/dL (3.4-5.0); ALKALINE PHOSPHATASE 92 U/L (46-116); NT-PRO BRAIN NAT PEPTIDE 3066 pg/mL (<300); SGOT 19 U/L (15-37); SGPT 27 U/L (30-65); TOTAL BILIRUBIN 0.2 mg/dL (<0.1-1.0); TOTAL PROTEIN 6.6 g/dL (6.4-8.2); TROPONIN-I LEVEL <0.06 ng/mL (<0.06)
--- NOTE | 2018-04-18 11:52 | NUR ---
[facility] NOTIFIED UPON PT RETURN FROM CT.PT CONNECTED TO O2 AND MONITOR
--- NOTE | 2018-04-18 13:08 | NUR ---
SECOND SWALLOW SCREEN COMPLETED PER SPEECH THERAPY REQUEST, REGARDLESS THAT THE PATIENT HAS SLURRED SPEECH. WAS NOTIFIED OF THIS REQUEST BY BIRGIT Dunham RN.
--- NOTE | 2018-04-18 14:32 | NUR ---
PT GIVEN A SANDWICH
[2018-04-18 16:52] VITALS: BP 170/82
[2018-04-18 17:00] VITALS: BP 150/77
--- NOTE | 2018-04-18 17:14 | EKG ---
[place] [address] ELECTROCARDIOGRAM REPORT Name: WILLIAN JARVIS Room: [address] ADM IN [facility]#: [id number] Admission: 04/18/18 Attend Phys: Kamlesh West Discharge: Date of : 58 Report #: [id number] THIS REPORT FOR: //name// [facility] Test Date: 2018-04-18 Test Time: 10:46:11 Pat Name: WILLIAN JARVIS Department: Room: [facility] Gender: F Last Model Maker: RIKKI : 1960 Requested By: Sandy Bello Order Number: [id number] MD: Britton Nielsen Measurements Intervals [place] Rate: 108 P: 85 AR: 180 QRS: 28 QRSD: 111 T: 18 QT: 384 QTc: 515 Interpretive Statements Sinus tachycardia Probable left atrial enlargement Probable anterolateral infarct, old Prolonged QT interval Compared to ECG 02/15/2018 18:34:00 Prolonged QT interval now present T-wave abnormality no longer present Myocardial infarct finding still present Electronically Signed On 04-18-2018 17:14:01 CDT by Britton Nielsen [email or web address] <ELECTRONICALLY SIGNED> By: Britton Nielsen MD, FACC 04/18/18 1714 1046 1046 Britton Nielsen MD, FAC /EPI
--- NOTE | 2018-04-18 19:00 | NUR ---
PT. ARRIVED TO UNIT AT APPROX. 1900. PT. IS A/OX4 WITH SOME NOTED CONFUSION, VSS, MONITOR PLACED TRACING ST. PT. STATES SHE HAS HAD PAIN IN RIGHT SIDE AND HEADACHE CURRENTLY. ON 2L NC @ 96%. PT. STATES AT HOME SHE WEARS 2-3L DURING THE DAY AND 3-4 AT NIGHT WITH HER TRILOGY. PT. DECLINES TO BRING TRILOGY HERE, AFRAID IT WILL GET BROKEN. PT. EXHIBITS SPOTTY DRY/RED RASH TO CHEST/TRUNK. PT. REPORTS RASH STARTED IN KRIS AREA WITH "BAD SMELL" PT. UP IN CHAIR AND WANTS TO EAT DINNER, UNABLE TO ASSESS FULL RASH AT THIS TIME. PT. ALSO EXHIBITS ABRAISIONS TO KNEES BILATERALLY AND BRUISING FROM RECENT FALL. FULL ASSESSMENT AND ADMISSION PROCESS COMPLETED, REFER TO CHARTING. DR. DUMONT NOTIFIED TO REORDER HOME MED AND ASK FOR PAIN MED. PT. SITTING IN RECLINER WITH FAMILY AT BEDSIDE CURRENTLY. REPORT GIVEN TO GIULIANA RN TO FOLLOW.
[2018-04-18 20:50] VITALS: BP 167/91
[2018-04-19] VITALS: BP 154/90
[2018-04-19 04:00] VITALS: BP 122/86
[2018-04-19 05:01] LABS: HEMATOCRIT 37.2 % (37.0-47.0); HEMOGLOBIN 11.8 gm/dL (12.0-15.0); MCH 26.4 pg (26.0-34.0); MCHC 31.7 g/dL (28.0-37.0); MCV 83.3 fL (80.0-100.0); MPV 7.9 fl. (7.2-11.1); RBC 4.47 mil/uL (4.20-5.00); RDW-CV 16.5 % (10.5-14.5); WBC 10.4 thou/uL (4.0-11.0)
[2018-04-19 05:21] LABS: ALBUMIN 2.6 g/dL (3.4-5.0); CALCIUM 8.3 mg/dL (8.5-10.1); CREATININE 1.5 mg/dL (0.6-1.3); POTASSIUM 3.6 mmol/L (3.5-5.1); TOTAL BILIRUBIN 0.2 mg/dL (<0.1-1.0); TOTAL PROTEIN 6.5 g/dL (6.4-8.2)
[2018-04-19 05:54] LABS: CHOLESTEROL 347 mg/dL (<200); HDL CHOLESTEROL 70 mg/dL (>40); LDL CHOLESTEROL 254 mg/dL (<100); TRIGLYCERIDE 115 mg/dL (<150); VLDL 23 mg/dL (<40)
[2018-04-19 05:57] LABS: SERUM ASSESSMENT Clear
--- NOTE | 2018-04-19 07:49 | NUR ---
PT IS ABLE TO COMMUNICATE HER NEEDS TO STAFF WITH MINOR DIFFICULTY; SHE HAS SOME SLURRED SPEECH. CURRENT PAIN MEDICATION REGIMEN HAS BEEN ADEQUATE FOR CONTROLLING HER PAIN UP TO THIS TIME. BED ALARM ON, PT HAS HAD A FALL AT HOME AND SHE IS IMPULSIVE AT TIMES. NIHSS PERFORMED PER ORDER WHERE APPLICABLE. SHE HAS BEEN STEADY WHEN UP, BUT A LITTLE CONFUSED AT TIMES. PT HAD NO OBSERVABLE DIFFICULTY SWALLOWING PILL WHILE SITTING UP DURING THIS SHIFT. MRI, US CAROTIDS, AND XR SWALLOW ORDERED FOR TODAY. SPEECH THERAPY CONSULTED WELL WOUND RN.
[2018-04-19 08:00] VITALS: BP 152/91
[2018-04-19 12:00] VITALS: BP 153/94
--- NOTE | 2018-04-19 14:04 | NUR ---
ASSUMED CARE OF PATIENT THIS AM AT 0730. PATIENT IS ALERT AND ORIENTED X 4. SHE DENIES PAIN. PATIENT TAKEN TO RADIOLOGY PER W/C FOR MRI THIS AM. ECHO STARTED WHEN PATIENT RETURNED TO THE ROOM. PATIENT'S IV INFLITRATED AND WAS DIFFICULT TO RESTART. TELE SHOWS ST. DR BRUSH IN TO SEE PATIENT. HE RECOMMENDS PATIENT TO BE TRANSFERRED OUT TO ANOTHER FACILITY.
--- NOTE | 2018-04-19 14:33 | NUR ---
WAS ASKED BY DR DUMONT TO ARRANGE FOR TRANSFER TO FOR EVAL BY N/S FOR POSSIBLE TUMOR. CALL TO TRANSFER TEAM/KAREN. INFO GIVEN, ALL SCANS UPLOADED TO CLOUD FOR THEIR REVIEW. TEAM TO CONTACT DR DUMONT. FAXED FACE SHEET TO PER REQUEST
[2018-04-19 15:05] VITALS: BP 126/71
--- NOTE | 2018-04-19 16:08 | 2DMMODE ---
[address] [address] 2 D/M-MODE ECHOCARDIOGRAM Name: WILLIAN JARVIS Room: [address] IN [facility]#: [id number] Admission: 04/18/18 Attend Phys: James Carias Discharge: Date of : 58 Date of Service: 04/19/18 1607 Report #: [id number] THIS REPORT FOR: //name// APPROVED REPORT Study performed: 04/19/2018 09:55:19 EXAM: Comprehensive 2D, Doppler, and color-flow Echocardiogram Patient Location: In-Patient Room #: [facility] Status: routine BSA: 1.90 HR: 101 bpm BP: 122/86 mmHg Rhythm: NSR Other Information Study Quality: Good Indications CVA/TIA Echo Enhancing Agent Indication: Rule out Shunt Agent(s) / Amount(s) Used: Agitated Saline 10 cc 2D Dimensions IVSd: 12.76 (7-11mm) LVOT Diam: 19.07 (18-24mm) LVDd: 54.28 mm PWd: 12.26 (7-11mm) Ascending Ao: 28.77 (22-36mm) LVDs: 37.27 (25-40mm) Aortic Root: 28.92 mm Volumes Left Atrial Volume (Systole) LA ESV Index: 54.20 mL/m2 Aortic Valve AoV Peak Choco.: 1.25 m/s AO Peak Gr.: 6.30 mmHg LVOT Max P.45 mmHg AO Mean Gr.: 3.55 mmHg LVOT Mean P.20 mmHg LVOT Max V: 0.78 m/s AO V2 VTI: 21.04 cm LVOT Mean V: 0.50 m/s DELFINA (VTI): 2.06 cm2 LVOT V1 VTI: 15.15 [place] [address] 2 D/M-MODE ECHOCARDIOGRAM Name: WILLIAN JARVIS Room: [address] IN [facility]#: [id number] Admission: 04/18/18 Attend Phys: James Carias Discharge: Date of : 58 Date of Service: 04/19/18 1607 Report #: [id number] Mitral Valve MV Mean Gr.: 16.43 mmHg TDI Medial E' Choco.: 0.10 m/s Lateral E' Choco.: 0.10 m/s Pulmonary Valve PV Peak Choco.: 0.92 m/s PV Peak Gr.: 3.39 mmHg Tricuspid Valve RAP Estimate: 10.00 mmHg TR Peak Gr.: 50.48 mmHg RVSP: 60.48 mmHg PA Pressure: 60.48 mmHg Left Ventricle The left ventricle is normal size. There is apical hypokinesis noted There is normal left ventricular wall thickness. Left ventricular systolic function is mildly decreased. LVEF is 45-50%. The left ventricular diastolic function is normal. Right Ventricle The right ventricle is normal size. The right ventricular systolic function is normal. Atria Left atrium is moderately dilated. The right atrium size is normal. Aortic Valve Mild aortic valve sclerosis. Trace aortic regurgitation. There is no aortic valvular stenosis. Mitral Valve There is mitral annular calcification. Mild to moderate mitral regurgitation. No evidence of mitral valve stenosis. Tricuspid Valve The tricuspid valve is normal in structure. Mild tricuspid regurgitation. Moderate pulmonary hypertension. Pulmonic Valve The pulmonary valve is normal in structure. Trace pulmonic regurgitation. [place] [address] 2 D/M-MODE ECHOCARDIOGRAM Name: WILLIAN JARVIS Room: [address] IN [facility].#: [id number] Admission: 04/18/18 Attend Phys: James Carias Discharge: Date of : 58 Date of Service: 04/19/18 1607 Report #: [id number] The aortic root is normal in size. IVC is dilated and collapses >50% with inspiration. Pericardium There is no pericardial effusion. <Conclusion> The left ventricle is normal size. There is normal left ventricular wall thickness. Left ventricular systolic function is mildly decreased. LVEF is 45-50%. The right ventricle is normal size. Left atrium is moderately dilated. Mild aortic valve sclerosis. There is no aortic valvular stenosis. There is mitral annular calcification. Mild to moderate mitral regurgitation. No evidence of mitral valve stenosis. The tricuspid valve is normal in structure. Mild tricuspid regurgitation. Moderate pulmonary hypertension. IVC is dilated and collapses >50% with inspiration. There is apical hypokinesis noted <ELECTRONICALLY SIGNED> By: Jacoby Longoria MD, FACC 04/19/18 1607 1607 1607 Jacoby Longoria MD, FACC /INF
--- NOTE | 2018-04-19 17:57 | NUR ---
MRI NOTIFIED OF NEED FOR RESULTS TO BE POSTED TO CLOUD FOR POSSIBLE [facility] TRANSFER. PHONE NUMBER FOR [facility] TRANSFER TEAM GIVEN TO BETINA: [phone] OR [phone].
[2018-04-19 20:00] VITALS: BP 137/77
--- NOTE | 2018-04-19 22:06 | NUR ---
ASSUMED PT CARE AT 1915. REPORT RECEIVED FROM NURSE. PT IS ALERT AWAKE ORIENTED X4. VITALS SIGNS WITHIN NORMAL LIMIT. SINUS RYTHM ON THE MONITOR. SATURATION 97% ON 2 L NC. ACCUCHECK 56 NO INSULIN GIVEN. SNACKS PROVIDED. NO COMPLAINT FROM PATIENT. ASSESSEMENT PERFORMED REFER TO CHARTING. PENDING DECISION ON TRANSFER TO [facility] IN [place], [place]. AWAITING FOR ACCEPTANCE OF THE PT. WAS CALLED ON NUMBER PROVIDED BY DAY SHIFT NURSE. TALKED WITH TRANSFER TEAM AT ABOUT ACCEPTING THE PATIENT. TRANSFER TEAN CALLED FEW MINUTES LATER AND ACCEPT PATIENT. EMS TRANSPORTATION ARRANGED FOR PATIENT WITH [employer] PARTICIPATION. DR IRVING CALL WAS PAGED AND MADE AWARE OF TRANSFER. PT TO BE TRANSFERED TO [place] [address] AT . REPORT GIVEN TO NURSE LAURENCE FIELD OVER THE PHONE. PT MADE AWARE ABOUT TRANSFER DECISION AND AGREEMENT PAPER SIGNED IN ROOM. TALKED TO TERRI AND DAUGHTER ANA ABOUT IT. THEY ARE AWAARE OF PT DESTINATION. EMS ARRIVED , ACCUCHECK RECHECKED. 60 NOW. IV LINE D/C, HEART MONITOR D/C, PT READY. PATIENT BELONGINGS PACKED ADN SENT ALONG . TRANSFER PAPERS HANDED TO EMS. PT LEFT THE FLOOR AT 2130 ACCOMPANIED BY EMS ON A STRETCHER ON 2 L NC.
[2018-04-20 03:07] LABS: GLYCOHEMOGLOBIN (HGB A1C) 11.2 % (4.8-5.6)
--- NOTE | 2018-04-21 09:32 | CON ---
[facility] [address] [place] [address] CONSULTATION Name: WILLIAN JARVIS Room: [address] IN [facility]#: [id number] Admission: 04/18/18 Attend Phys: Kamlesh West Discharge: 04/19/18 Date of : 58 Report #: [id number] THIS REPORT FOR: //name// CC: Doreen Carias DATE OF SERVICE: 04/18/2018 HISTORY OF PRESENT ILLNESS: This is a 57-year-old female patient who was evaluated with a pretty poorly defined history. She has been feeling weak for 3 days and the symptom may be going on longer than that. At one time, she fell but is not sure why she fell. She never hit her head. Around the same time, she also started having some headache. REVIEW OF SYSTEMS: Indicate that this patient is a diabetic. I reviewed a lot of her records. At one time, she had renal failure. At one time. She has respiratory failure. She has a prior history of myocardial infarction. She has a prior history of a cataract on both sides. She had COPD. She used to smoke. She stopped smoking in December and that now, the CT scan shows a frontal lobe stroke and I carried out a 14-point review of system and this was a relevant 14-point review of system. PAST MEDICAL HISTORY: Positive for knee problem. FAMILY HISTORY: Negative for early age stroke. SOCIAL HISTORY: She used to smoke. She stopped smoking in December. She does drink alcohol on special occasions. PHYSICAL EXAMINATION: NEUROLOGICAL: Indicate that this patient is alert and responsive. She can follow simple commands. Her speech, concentration, fund of knowledge and memory is at her baseline. Cranial nerve examinations indicate cataract on the right side. She has surgery on the left side. Her reflexes are diminished in all 4 extremities, but she states she can feel the touch. CARDIAC: Examinations appear noncontributory. GENERAL: She is morbidly obese. HEENT: Her hearing looks adequate. EXTREMITIES: Pulses are difficult to feel. VITAL SIGNS: Her blood pressure is 150/77, respirations 20, pulse is 112 and temperature is 98.2. RADIOLOGICAL DATA: CT scan was reviewed, which showed a frontal lobe stroke. IMPRESSION: 1. Most likely this is cerebrovascular accident. We will [place] [address] CONSULTATION Name: WILLIAN JARVIS Room: [address]#: [id number] Admission: 04/18/18 Attend Phys: Kamlesh West Discharge: 04/19/18 Date of : 58 Report #: [id number] there is any doubt, we may have to do the contrast MRI to look for the tumor. I preferred not to do the contrast MRI for the time being and just see what the noncontrast shows. 2. I do not know what her rashes from and that may need further workup. 3. I will not be inclined to do a CT angio in this patient until we have to because she had renal shutdown in the past and GFR in the 30s. RECOMMENDATIONS: I had a long discussion with this patient. She has already received aspirin in the hospital but that need to be continuous. She is allergic to CRESTOR according to her. I did ask her to consider alternate statin in this patient and she said she will do that. I discussed all of it with her in detail and more than 50 minutes of time was spent taking care of this patient today and majority of that time was spent counseling this patient and coordinating her care. <ELECTRONICALLY SIGNED> By: Jan Resendiz MD 04/21/18 0932 [id number] Resendiz MD /nt
== END 2018-04-19 21:30 | disposition home health service (06) | DRG 871 ==
LOC: M.ERS 10:18 → M.TBA-ER 12:57 → M.2W 12:57
PROVIDERS: Physician Assistant Surgical; ADMIT Internal Medicine
DX: A41.9 Sepsis, unspecified organism (principal); I63.9 Cerebral infarction, unspecified; G93.41 Metabolic encephalopathy; J69.0 Pneumonitis due to inhalation of food and vomit; J96.00 Acute respiratory failure, unspecified whether with hypoxia or hypercapnia; I21.3 ST elevation (STEMI) myocardial infarction of unspecified site; E11.10 Type 2 diabetes mellitus with ketoacidosis without coma; J44.1 Chronic obstructive pulmonary disease with (acute) exacerbation; I13.0 Hypertensive heart and chronic kidney disease with heart failure and stage 1 through stage 4 chronic kidney disease, or unspecified chronic kidney disease; J44.0 Chronic obstructive pulmonary disease with (acute) lower respiratory infection; J20.9 Acute bronchitis, unspecified; I50.9 Heart failure, unspecified; K21.9 Gastro-esophageal reflux disease without esophagitis; M19.90 Unspecified osteoarthritis, unspecified site; F32.9 Major depressive disorder, single episode, unspecified; E78.5 Hyperlipidemia, unspecified; N18.3 Chronic kidney disease, stage 3 (moderate); Z88.8 Allergy status to other drugs, medicaments and biological substances; Z82.49 Family history of ischemic heart disease and other diseases of the circulatory system; Z83.3 Family history of diabetes mellitus; Z87.891 Personal history of nicotine dependence; Z79.82 Long term (current) use of aspirin; Z79.899 Other long term (current) drug therapy

== ENCOUNTER → 2018-06-15 | Outpatient (CLI) | payer MEDICARE ==
[~2018-06-15] MED LIST changes: +TRULICITY0.75 MG/0. SUBQ
--- NOTE | ~2018-06-15 | PAINCON ---
[address] [address] PAIN MANAGEMENT CONSULTATION Name: PARISH JARVISS Sandra Room: [facility]ZAR[facility] Ramos#: [id number] Admission: 06/15/18 Attend Phys: Moses Rice MD Discharge: Date of : 58 Report #: [id number] THIS REPORT FOR: //name// CC: Doreen Rice DATE OF SERVICE: 06/15/2018 CHIEF COMPLAINT: Back pain. HISTORY: The patient is a 57-year-old female who has been followed in the pain clinic because of chronic low back pain. She returns today indicating that she has had some problems since we saw her last. She had a stroke since we saw her last. She is having some small amount of difficulty remembering certain things. She was found to have a nodule in her brain. This was problematic. She underwent a brain biopsy. She was told that it was benign. She did not have any paralysis or problems with her limbs. She still has good function. Does note sometimes a bit of confusion. She went from [facility] after the insult to rehabilitation. Overall, things are going reasonably well. She has returned to the pain clinic with a possibility of undergoing an epidural steroid injection. Injection in the past has been helpful. She recently underwent an injection for the flu. She will return to the pain clinic to get an injection. She recently read that the flu shot should not be taken within 2 weeks of epidural injection. ALLERGIES: CRESTOR. CURRENT MEDICATIONS: Aspirin 325 mg daily, Coreg 25 mg b.i.d., Tylenol 650 mg q. 4 hours p.r.n., Coreg 25 mg b.i.d., Flexeril 10 mg t.i.d., Trulicity 0.75 mg subcutaneous weekly, Lasix 40 mg 3 times weekly, hydralazine 25 mg 3 times daily, insulin Lantus 100 units subq, insulin Humulin before meals 15 units, nebulizer, nitroglycerin 0.4 mg sublingual, Elocon 0.1% cream transdermal b.i.d. PAIN CLINIC ASSESSMENT/PQRS: 1. The patient is not being treated for osteoarthritis. She does have some arthritic changes in her low back area and has had surgery involving her back, knees and right shoulder. She is not being treated for rheumatoid arthritis. 2. Vital signs: Blood pressure is 130/70, heart rate 86, respiratory rate 18, room air saturation 92%, temperature 97.8. 3. Pain intensity 6-7. Height 4 feet 11 inches, weight 206 pounds, BMI is 44. 4. Fall risk. The patient did fall and landed on her buttocks while at rehabilitation. Imaging did not show any fractures. 5. Blood thinner. The patient is not on a blood thinning medication. 6. Hypertension. The patient is being treated for hypertension. 7. Opioid greater than 6 weeks: The patient receives medications from one source. She is taking tramadol [place] [address] PAIN MANAGEMENT CONSULTATION Name: WILLIAN JARVIS [id number] Admission: 06/15/18 Attend Phys: Moses iRce MD Discharge: Date of : 58 Report #: [id number] 8. Risk assessment tool. 9. Functional assessment tool. 10. Recreational drug use: The patient denies use of recreational drugs. 11. Tobacco: The patient denies use of tobacco and has stopped smoking. 12. Alcohol: The patient denies use of alcoholic beverages. PHYSICAL EXAMINATION: GENERAL: The patient is a well-developed, well-nourished white female. She is somewhat obese. Short in stature. Affect is appropriate. Speech is fluent. She looks well. HEENT: Normocephalic, atraumatic. Extraocular eye muscles intact. Sclerae nonicteric. Mucous membranes are moist. The patient is without cough. Lungs are clear to auscultation. NECK: Without JVD or adenopathy. ABDOMEN: Protuberant, bowel sounds are present. EXTREMITIES: Upper extremity muscle strength judged to be 5/5. The patient does have some pain and discomfort in her right shoulder with some decreased range of motion in her right shoulder, decreased extension, adduction, and abduction. Unable to raise her arms above midline. MUSCULOSKELETAL: Without significant kyphosis, scoliosis or lordosis. The patient has some pains radiating down in the anterior portion of her legs in the L3-L4 distribution. This is in the anterior portion of her thighs. This has improved with epidural steroid injection in the past. IMPRESSION: 1. History of lumbar radiculopathy involving the L3-L4 dermatomal distribution. 2. History of diabetes. The patient's blood sugar was 900 at one juncture. 3. Bilateral knee pain, history of osteoarthritis and has had injections in her knees, shoulders. 4. Spinal stenosis at L3-L4 and L4-L5. 5. Diabetes type 2, peripheral neuropathy. 6. Chronic renal disease with clearance about 33. 7. Coronary artery disease, status post congestive heart failure. 8. Chronic obstructive pulmonary disease, 4 liters oxygen at home. 9. Tobacco: The patient states that she has decreased and stopped using tobacco. 10. Hypertension. 11. Morbid obesity with a body mass index of 44. 11. Recent cerebrovascular accident - biopsy of the brain did not reveal pathology. RECOMMENDATIONS: The patient will return to the pain clinic in about a week, after which she will consider an epidural steroid injection. The patient recently had a flu shot. It is commonly thought that 2 weeks should be observed before injection of steroid is given when the patient undergoes a flu inoculation. She will call us if she has any concerns[place] [address] PAIN MANAGEMENT CONSULTATION Name: WILLIAN JARVIS Room: [facility]#: [id number] Admission: 06/15/18 Attend Phys: Moses Rice MD Discharge: Date of : 58 Report #: [id number] which time an epidural steroid injection in the L3-L4 area would be performed. We would like to thank you for letting us participate in her care. We hope she continues to improve. By: [id number]. Иван Rice MD /[place]
== END ==
LOC: M.PC 05:37
DX: I13.0 Hypertensive heart and chronic kidney disease with heart failure and stage 1 through stage 4 chronic kidney disease, or unspecified chronic kidney disease (principal); E11.22 Type 2 diabetes mellitus with diabetic chronic kidney disease; I25.10 Atherosclerotic heart disease of native coronary artery without angina pectoris; N18.9 Chronic kidney disease, unspecified; M54.16 Radiculopathy, lumbar region; M25.561 Pain in right knee; M25.562 Pain in left knee; M48.061 Spinal stenosis, lumbar region without neurogenic claudication; E11.40 Type 2 diabetes mellitus with diabetic neuropathy, unspecified; J44.9 Chronic obstructive pulmonary disease, unspecified; I63.89 Other cerebral infarction; E66.01 Morbid (severe) obesity due to excess calories; I50.9 Heart failure, unspecified; Z87.891 Personal history of nicotine dependence; Z68.41 Body mass index [BMI] 40.0-44.9, adult

== ENCOUNTER → 2018-07-11 | Outpatient (CLI) | payer MEDICARE ==
[~2018-07-11] MED LIST changes: +EFFEXOR XR150 MG PO; +KEPPRA 500 MG500 M1 PO; +POTASSIUM20 PO; +seizure med
--- NOTE | ~2018-07-11 | PAINCON ---
[address] [address] PAIN MANAGEMENT CONSULTATION Name: PARISH JARVISS Sandra Room: [facility] CharlaDylon#: [id number] Admission: 07/11/18 Attend Phys: Moses Rice MD Discharge: Date of : 58 Report #: [id number] THIS REPORT FOR: //name// CC: Doreen Rice DATE OF SERVICE: 07/11/2018 CHIEF COMPLAINT: Here for an epidural injection. HISTORY: The patient is a 58-year-old female who has been followed in the Pain Clinic. She returns today indicating that she has continued to have some pain and discomfort. She is scheduled to see a neurologist on 07/12/2018. She continues to have pain and rates it as a 6/10. She has returned today with the hopes of undergoing an epidural steroid injection. In the past, this has been beneficial. She is having pain that radiates down into both legs. Pain is shooting and constant. She has been doing physical therapy at home twice a week. Feels that the tramadol medication has been helpful in the past, sometimes not as effective as she would like. Notes that activities such as walking, sitting, standing, climbing stairs, lifting and bending as well as temperature changes outside can be problematic. No chose of her medication, sometimes hot, sometimes cold, have been beneficial. ALLERGIES: CRESTOR. CURRENT MEDICATIONS: Aspirin 81 mg, Coreg 25 mg b.i.d., Tylenol 650 mg q.4h. p.r.n., Coreg, Flexeril 10 mg 1 p.o. t.i.d., Trulicity 0.75 mg subcutaneous weekly, Lasix 40 mg 3 times weekly, hydralazine 25 mg 3 times a day, insulin Lantus 100 mg, insulin 15 units before meals, nebulizer, nitroglycerin 0.4 mg sublingual, Elocon 0.1% cream transdermal b.i.d. PAIN CLINIC ASSESSMENT/PQRS: 1. The patient is not being treated for osteoarthritis. Does have some arthritic changes in her back ____ surgery involving the low back area. Has some problems with her knees as well as with her shoulders. The patient is not being treated for rheumatoid arthritis. 2. Vital signs: Blood pressure is 137/74, heart rate 91, respiratory rate 16, room air saturation 92%, temperature 97.5. 3. Pain intensity 10. 4. Fall risk. The patient has not fallen in the last 3 months. Height 4 feet 10 inches, weight 201 pounds, BMI is 42. 5. Blood thinner. The patient is not on a blood thinning medication. 6. Hypertension. The patient is being treated for hypertension. 7. Opioids greater than 6 weeks. At this juncture, gets her medication from one source. [place] [address] PAIN MANAGEMENT CONSULTATION Name: WILLIAN JARVIS Room: [facility]#: [id number] Admission: 07/11/18 Attend Phys: Moses Rice MD Discharge: Date of : 58 Report #: [id number] 8. Risk assessment tool. 9. Functional assessment tool. 10. Recreational drug use. The patient denies use of recreational drugs. 11. Tobacco: The patient denies use of tobacco, has stopped smoking. 12. Alcohol: The patient denies use of alcoholic beverages. PHYSICAL EXAMINATION: GENERAL: The patient is a well-developed, somewhat short in stature white female. Appears her stated age. She is alert and oriented x 3. She looks relatively well today. HEENT: Normocephalic, atraumatic. Extraocular eye muscles intact. Sclerae nonicteric. Mucous membranes are moist. LUNGS: Generally clear. NECK: Without adenopathy or JVD. ABDOMEN: Protuberant. Bowel sounds present. EXTREMITIES: Upper extremity muscle strength is judged to be 5-/5 for the major muscle groups. The patient has pain and discomfort in her right shoulder. Some decreased range of motion with decreased ability with extension, abduction and adduction. The patient is unable to raise her arms above midline. MUSCULOSKELETAL: Without significant scoliosis, kyphosis, or lordosis. The patient has pain that radiates down to posterior portion of her legs in the L3-L4 distribution. The patient also notes some pain and discomfort in the thigh area in that dermatomal distribution. IMPRESSION: 1. History of lumbar radiculopathy in the L3-L4 distribution. 2. Diabetes. The patient has had elevated blood sugars in the past, 900 at one point. 3. Bilateral knee pain. 4. History of osteoarthritis, has had injections in her shoulders, knees, and shoulder. 5. Spinal stenosis L3-L4 and L4-L5. 6. Diabetes type 2, peripheral neuropathy. 7. Renal disease with creatinine clearance 33. 8. Coronary artery disease, status post congestive heart failure. 9. Chronic obstructive pulmonary disease, 4 liters oxygen at home. 10. Tobacco: The patient states she has stopped smoking. 11. Hypertension. 12. Morbid obesity with a body mass index of 42. 13. Recent cardiovascular accident. RECOMMENDATIONS: We discussed the treatment options with the patient. Risks and benefits of an epidural steroid injection were discussed. Possible complications which could include, but are not limited to infection, worsening of pain, no improvement in pain and the patient elects to proceed. Possible worsening of pain with bleeding, nerve trauma with spinal headache or paralysis [facility] [address] [place] [address] PAIN MANAGEMENT CONSULTATION Name: WILLIAN JARVIS Room: [facility]#: [id number] Admission: 07/11/18 Attend Phys: Moses Rice MD Discharge: Date of : 58 Report #: [id number] were reviewed. The patient feels that her pain is problematic, has improved in the past and would like to proceed with another injection. PROCEDURE NOTE: The patient was taken to the procedure area. She was assisted in getting on the examination table. Fluoroscopy using anterior, posterior as well as lateral viewing were implemented. Her back was sterilely prepped in the L3-L4 interspace. A 0.25% bupivacaine was infiltrated. A 17-gauge Tuohy with loss of resistance technique was used to gain access to the epidural space. There was no CSF, heme or paresthesia. A total of 80 mg Depo-Medrol, 40 mg triamcinolone and 2 mL of 0.25% bupivacaine was injected. The patient tolerated the procedure well. She remained in the Pain Clinic for an appropriate amount of time. She will monitor her blood sugar levels, so that they do not increase above a certain level. If she has problems, she will call her primary care physician. We would like to thank you for letting us participate in her care. We hope she continues to improve. By: [id number]. Иван Rice MD /nt
== END | disposition home or self-care (01) ==
LOC: M.PC 04:41
DX: M54.16 Radiculopathy, lumbar region (principal); G89.29 Other chronic pain; I11.0 Hypertensive heart disease with heart failure; I21.9 Acute myocardial infarction, unspecified; E11.9 Type 2 diabetes mellitus without complications; I25.10 Atherosclerotic heart disease of native coronary artery without angina pectoris; M19.90 Unspecified osteoarthritis, unspecified site; M25.561 Pain in right knee; M25.562 Pain in left knee; J44.9 Chronic obstructive pulmonary disease, unspecified; E66.01 Morbid (severe) obesity due to excess calories; Z68.41 Body mass index [BMI] 40.0-44.9, adult; Z87.891 Personal history of nicotine dependence; Z98.890 Other specified postprocedural states; Z79.82 Long term (current) use of aspirin; Z79.899 Other long term (current) drug therapy; Z79.4 Long term (current) use of insulin

== ENCOUNTER → 2018-08-08 | Outpatient (CLI) | payer MEDICARE ==
[~2018-08-08] MED LIST changes: +[UNRECOGNIZED DRUG - REMARK]
--- NOTE | ~2018-08-08 | PAINCON ---
[address] [address] PAIN MANAGEMENT CONSULTATION Name: WILLIAN JARVIS Room: [facility] Ramos#: [id number] Admission: 08/08/18 Attend Phys: Moses Rice MD Discharge: Date of : 58 Report #: [id number] THIS REPORT FOR: //name// CC: Doreen Rice DATE OF SERVICE: 08/08/2018 CHIEF COMPLAINT: Here for another epidural steroid injection. Things were doing pretty well. I fell walking out of [facility]. She had more pain since then. HISTORY: The patient is a 58-year-old female who has been followed in the pain clinic. She has pain that continues to be problematic in her low back area. As you may recall, she has had surgery. She has had instrumentation in the low back area. She returns today indicating that she is continuing to have some pain and discomfort in the back and rates it a 5-6 since a fall around the Tuesday after [place]. She also continues to have some headache type pain. She has been having that for quite a number of years since she has had surgery on her head. She has returned today with a desire to undergo epidural steroid injection to help decrease the pain and discomfort which she is experiencing, but is radiating down into her left leg in the anterior thigh area. Injections in the past were beneficial at L3-L4. She does have spinal stenosis in this area. ALLERGIES: CRESTOR. CURRENT MEDICATIONS: Aspirin 81 mg, Coreg 25 mg b.i.d., Tylenol 650 mg, Flexeril 10 mg 1 p.o. t.i.d., Trulicity 0.7 mg subcutaneous weekly, Lasix 40 mg 3 times weekly, hydralazine 25 mg 3 times a day, insulin Lantus, 15 units before meals, nebulizer, nitroglycerin 0.4 mg sublingual, Elocon 0.1% cream transdermal b.i.d. PAIN CLINIC ASSESSMENT/PQRS: 1. The patient is not being treated for osteoarthritis. Does have some arthritic changes in the lower back and has had surgery. Also, complains of some pain in her knees and shoulders. 2. Vital Signs: Blood pressure is 111/72, heart rate 90, respiratory rate 18, room air saturation 94%, temperature 97.7. 3. Height 4 feet 10 inches, weight 198 pounds, BMI is 41.5. 4. Pain intensity 5-6/10. 5. Fall risk. The patient did fall a few days after [place]. Notes some increased pain and discomfort since that fall. 6. Blood thinner. The patient is not on a blood thinning medication. 7. Hypertension. The patient [place] [address] PAIN MANAGEMENT CONSULTATION Name: WILLIAN JARVIS Room: [facility]#: [id number] Admission: 08/08/18 Attend Phys: Moses Rice MD Discharge: Date of : 58 Report #: [id number] 8. Opioids greater than 6 weeks. The patient has not received medications from the pain clinic. She is using tramadol. 9. Risk assessment tool, low for opioids. 10. Functional assessment tool. 11. Recreational drug use. The patient denies use of recreational drugs. 12. Tobacco: The patient denies use of tobacco and stop smoking. 13. Alcohol: The patient denies use of alcoholic beverages. PHYSICAL EXAMINATION: GENERAL: The patient is well-developed, well-nourished, short white female. Appears her stated age. She is alert and oriented x3. HEAD, EYES, EARS, NOSE, AND THROAT: Normocephalic, atraumatic. Extraocular muscles intact. Sclerae nonicteric. Mucous membranes moist. The patient is wearing glasses. LUNGS: Generally clear. The patient is not coughing as she had been in the past. Smoking cessation seems to have been helpful. NECK: Without adenopathy or JVD. ABDOMEN: Protuberant. Bowel sounds present. EXTREMITIES: Upper extremity muscle strength judged to be 5-5/5 for the major muscle groups. The patient has some pain in her right shoulder. Has decreased range of motion with extension, adduction and abduction. Unable to raise her arms above midline. MUSCULOSKELETAL: Without significant scoliosis, kyphosis or lordosis. The patient's pain is radiating down her legs in the L3-L4 dermatomal distribution. Notes pain in the anterior portion of her thighs. IMPRESSION: 1. History of lumbar radiculopathy at the L3-L4 disk fusion. 2. Diabetes, elevated blood sugars in the past, once 900. 3. Bilateral knee pain. 4. History of osteoarthritis, but has had injections in her shoulders, knees and found them beneficial. 5. Spinal stenosis L3-L4 and L4-L5. 6. Diabetes type 2, peripheral neuropathy. 7. Renal disease with creatinine clearance 33. 8. Coronary artery disease, status post congestive heart failure. 9. Chronic obstructive pulmonary disease, 4 liters oxygen at home. 10. Tobacco: The patient has stopped smoking recently. 11. Hypertension. 12. Morbid obesity with body mass index of 42. 13. Recent cardiovascular accident. RECOMMENDATIONS: We discussed treatment options with the patient. At this juncture, we will proceed with an epidural steroid injection. Risks and benefits of the procedure were again reviewed. The patient states that she is aware of them. They include but are not limited to infection, worsening pain, [facility] [address] [place] [address] PAIN MANAGEMENT CONSULTATION Name: WILLIAN JARVIS Room: [facility].#: [id number] Admission: 08/08/18 Attend Phys: Moses Rice MD Discharge: Date of : 58 Report #: [id number] no improvement in pain, spinal headache, nerve trauma and the patient elects to proceed. PROCEDURE NOTE: The patient was assisted in getting on the examination table. She was placed in the prone position. Her back was sterilely prepped with a Betadine solution. Fluoroscopy using anterior, posterior as well as lateral viewing were implemented. The L3-L4 interspace had been sterilely prepped with Betadine. 0.25% bupivacaine was infiltrated using a 25-gauge needle. A left lateral midline approach was undertaken. A 17-gauge Tuohy with loss of resistance technique was used to gain access to the epidural space. There was no CSF, heme or paresthesia. Total of 80 mg Depo-Medrol, 40 mg triamcinolone and 2 mL of 0.25% bupivacaine was injected. The patient tolerated the procedure well. There were no complications. Twenty four seconds fluoroscopy time was used. We would like to thank you for letting us to participate in her care. We hope she continues to improve. By: [id number]. Иван Rice MD /ESSIE
== END | disposition home or self-care (01) ==
LOC: M.PC 09:30
DX: M54.16 Radiculopathy, lumbar region (principal); G89.29 Other chronic pain; I11.0 Hypertensive heart disease with heart failure; I50.9 Heart failure, unspecified; I25.10 Atherosclerotic heart disease of native coronary artery without angina pectoris; E11.10 Type 2 diabetes mellitus with ketoacidosis without coma; E11.40 Type 2 diabetes mellitus with diabetic neuropathy, unspecified; J44.1 Chronic obstructive pulmonary disease with (acute) exacerbation; I63.9 Cerebral infarction, unspecified; M19.90 Unspecified osteoarthritis, unspecified site; N28.9 Disorder of kidney and ureter, unspecified; M48.061 Spinal stenosis, lumbar region without neurogenic claudication; E66.01 Morbid (severe) obesity due to excess calories; Z87.891 Personal history of nicotine dependence; Z68.41 Body mass index [BMI] 40.0-44.9, adult; Z98.890 Other specified postprocedural states; Z79.899 Other long term (current) drug therapy; Z88.8 Allergy status to other drugs, medicaments and biological substances; Z79.82 Long term (current) use of aspirin; Z79.4 Long term (current) use of insulin